=== PATIENT | female | born 1930 | race Caucasian/White ===

== ENCOUNTER 2016-10-10 09:17 | Inpatient (IN) | payer MEDICARE, BC ==
[2016-10-10] MEDS ORDERED: FUROSEMIDE 10 MG/ML 4 ML VIAL IV STA (09:31)
[2016-10-10] MEDS ORDERED: NITROGLYCERIN OINT 1 INCH/GM PACKET TOPICAL STA (09:31)
--- NOTE | 2016-10-10 09:37 | ED ---
General Adult HPI - General Stated complaint: Difficulty Breathing/Abd Pain Time Seen by Provider: 10/10/16 09:17 Source: RN notes reviewed - History of Present Illness Initial comments: This is an 86-year-old female who presents emergency Department with a past medical history significant for atrial fibrillation and congestive heart failure. Patient comes in the emergency department today stating that since Monday she has been more short of breath has also noticed increased edema in her legs. Patient denies any chest pain or palpitations. Patient denies any recent fever chills or cough. Patient denies any lightheadedness dizziness or near syncopal episode. Patient denies any numbness or weakness. Patient denies abdominal pain patient denies nausea vomiting diarrhea. Patient denies any dysuria hematuria urinary frequency. Patient denies any recent injury or trauma. - Related Data Home Medications Medication Instructions Recorded Confirmed Diltiazem Cd [Cardizem CD] 120 mg PO DAILY 04/26/14 10/10/16 Furosemide [Lasix] 40 mg PO BID 04/26/14 10/10/16 Gabapentin [Neurontin] 100 mg PO DAILY 04/26/14 10/10/16 glipiZIDE [Glucotrol] 5 mg PO AC-BID 04/26/14 10/10/16 Betamethasone Dipropionate 1 applic TOPICAL BID 10/10/16 10/10/16 [Diprolene AF 0.05% Cream] Hydrocodone/Acetaminophen [[place] 1 tab PO QID PRN 10/10/16 10/10/16 7.5-325] Melatonin 5 mg PO HS 10/10/16 10/10/16 Ranitidine HCl [Zantac] 150 mg PO BID 10/10/16 10/10/16 Simvastatin [Zocor] 40 mg PO HS 10/10/16 10/10/16 Warfarin [Coumadin] 2.5 mg PO SUTUTHSA 10/10/16 10/10/16 Allergies Allergy/AdvReac Type Severity Reaction Status Date / Time Penicillins Allergy Unknown Verified 10/10/16 10:26 Sulfa (Sulfonamide Allergy Unknown Verified 10/10/16 10:26 Antibiotics) Review of Systems ROS Statement: Those systems with pertinent positive or pertinent negative responses have been documented in the HPI. ROS Other: All systems not noted in ROS Statement are negative. Past Medical History Past Medical History: Atrial Fibrillation, Diabetes Mellitus, Hyperlipidemia, Hypertension History of Any Multi-Drug Resistant Organisms: None Reported Past Surgical History: Appendectomy, Cholecystectomy, Hysterectomy, Tubal Ligation Past Psychological History: No Psychological Hx Reported Smoking Status: Never smoker Past Alcohol Use History: None Reported Past Drug Use History: None Reported General Exam - General Exam Comments Initial Comments: GENERAL: Patient is well-developed and well-nourished. Patient is nontoxic and well- hydrated and is in mild distress. ENT: Neck is soft and supple. No significant lymphadenopathy is noted. Oropharynx is clear. Moist mucous membranes. Neck has full range of motion without eliciting any pain. EYES: The sclera were anicteric and conjunctiva were pink and moist. Extraocular movements were intact and pupils were equal round and reactive to light. Eyelids were unremarkable. PULMONARY: Unlabored respirations. Good breath sounds bilaterally. Crackles in the bases left greater than right CARDIOVASCULAR: There is a regular rate and rhythm without any murmurs gallops or rubs. ABDOMEN: Soft and nontender with normal bowel sounds. No palpable organomegaly was noted. There is no palpable pulsatile mass. SKIN: Skin is clear with no lesions or rashes and otherwise unremarkable. NEUROLOGIC: Patient is alert and oriented x3. Cranial nerves II through XII are grossly intact. Motor and sensory are also intact. Normal speech, volume and content. Symmetrical smile. MUSCULOSKELETAL: Normal extremities with adequate strength and full range of motion. 2+ edema LYMPHATICS: No significant lymphadenopathy is noted PSYCHIATRIC: Normal psychiatric evaluation. Normal interpersonal interactions appears functionally intact in deals appropriately with others. No signs of depression. No signs of anxiety. Course Vital Signs 10/10/16 10/10/16 10/10/16 09:30 09:51 09:53 Temperature 99.1 F Pulse Rate 66 63 Respiratory 24 24 24 Rate Blood Pressure 151/71 147/70 O2 Sat by Pulse 98 98 Oximetry 10/10/16 10:21 Temperature Pulse Rate 62 Respiratory 22 Rate Blood Pressure 133/68 O2 Sat by Pulse 94 L Oximetry Medical Decision Making - Medical Decision Making EKG shows accelerated junctional rhythm no P waves are noted QRSs 100 a QT interval 414 QTC is 440. Patient's EKG shows no ST segment elevation or depression Patient's chest x-ray shows pulmonary edema. Patient received Lasix and Nitropaste in the emergency department to try to recent. Patient also had an elevated troponin that will be repeated as an inpatient. I will continue the patient's Lasix on the floor as well. I spoke with Dr. Frye he agreed to admit the patient admitted the patient and consult cardiology. - Lab Data Result diagrams: 10/10/16 09:40 10/10/16 09:40 Lab Results 10/10/16 10/10/16 10/10/16 Range/Units 09:40 09:40 09:40 WBC 11.3 H (3.8-10.6) k/uL RBC 4.48 (3.80-5.40) m/uL Hgb 14.5 (11.4-16.0) gm/dL Hct 44.8 (34.0-46.0) % MCV 100.0 (80.0-100.0) fL MCH 32.3 (25.0-35.0) pg MCHC 32.3 (31.0-37.0) g/dL RDW 15.0 (11.5-15.5) % Plt Count 181 (150-450) k/uL Neutrophils % 73 % Lymphocytes % 15 % Monocytes % 7 % Eosinophils % 1 % Basophils % 1 % Neutrophils # 8.3 H (1.3-7.7) k/uL Lymphocytes # 1.7 (1.0-4.8) k/uL Monocytes # 0.8 (0-1.0) k/uL Eosinophils # 0.2 (0-0.7) k/uL Basophils # 0.1 (0-0.2) k/uL Hypochromasia Slight Macrocytosis Slight PT (9.0-12.0) sec INR (<1.1) APTT (22.0-30.0) sec Sodium 138 (137-145) mmol/L Potassium 4.8 (3.5-5.1) mmol/L Chloride 103 (98-107) mmol/L Carbon Dioxide 21 L (22-30) mmol/L Anion Gap 14 mmol/L BUN 38 H (7-17) mg/dL Creatinine 1.29 H (0.52-1.04) mg/dL Est GFR (MDRD) Af Amer 48 (>60 ml/min/1.73 sqM) Est GFR (MDRD) Non-Af 39 (>60 ml/min/1.73 sqM) Glucose 260 H (74-99) mg/dL Calcium 9.3 (8.4-10.2) mg/dL Magnesium 2.1 (1.6-2.3) mg/dL Total Bilirubin 0.9 (0.2-1.3) mg/dL AST 39 H (14-36) U/L ALT 25 (9-52) U/L Alkaline Phosphatase 76 (38-126) U/L Total Creatine Kinase 68 (30-135) U/L CK-MB (CK-2) 2.7 H* (0.0-2.4) ng/mL CK-MB (CK-2) Rel Index 4.0 Troponin I 0.122 H* (0.000-0.034) ng/mL NT-Pro-B Natriuret Pep pg/mL Total Protein 7.3 (6.3-8.2) g/dL Albumin 4.0 (3.5-5.0) g/dL 10/10/16 10/10/16 Range/Units 09:40 09:40 WBC (3.8-10.6) k/uL RBC (3.80-5.40) m/uL Hgb (11.4-16.0) gm/dL Hct (34.0-46.0) % MCV (80.0-100.0) fL MCH (25.0-35.0) pg MCHC (31.0-37.0) g/dL RDW (11.5-15.5) % Plt Count (150-450) k/uL Neutrophils % % Lymphocytes % % Monocytes % % Eosinophils % % Basophils % % Neutrophils # (1.3-7.7) k/uL Lymphocytes # (1.0-4.8) k/uL Monocytes # (0-1.0) k/uL Eosinophils # (0-0.7) k/uL Basophils # (0-0.2) k/uL Hypochromasia Macrocytosis PT 23.3 H (9.0-12.0) sec INR 2.4 (<1.1) APTT 29.4 (22.0-30.0) sec Sodium (137-145) mmol/L Potassium (3.5-5.1) mmol/L Chloride (98-107) mmol/L Carbon Dioxide (22-30) mmol/L Anion Gap mmol/L BUN (7-17) mg/dL Creatinine (0.52-1.04) mg/dL Est GFR (MDRD) Af Amer (>60 ml/min/1.73 sqM) Est GFR (MDRD) Non-Af (>60 ml/min/1.73 sqM) Glucose (74-99) mg/dL Calcium (8.4-10.2) mg/dL Magnesium (1.6-2.3) mg/dL Total Bilirubin (0.2-1.3) mg/dL AST (14-36) U/L ALT (9-52) U/L Alkaline Phosphatase (38-126) U/L Total Creatine Kinase (30-135) U/L CK-MB (CK-2) (0.0-2.4) ng/mL CK-MB (CK-2) Rel Index Troponin I (0.000-0.034) ng/mL NT-Pro-B Natriuret Pep 2710 pg/mL Total Protein (6.3-8.2) g/dL Albumin (3.5-5.0) g/dL Critical Care Time Critical Care Time: Yes Total Critical Care Time: 35 Disposition Clinical Impression: Acute pulmonary edema Disposition: ADMITTED IP TO THIS [facility] Time of Disposition: 11:02
[2016-10-10] MEDS ORDERED: methylPREDNISolone SOD SUCCI 125 MG/2 ML VIAL IV STA (09:58)
[2016-10-10] MEDS ORDERED: IPRATROPIUM 0.5 MG/2.5 ML NEBU INHALATION STA (09:58)
[2016-10-10] MEDS ORDERED: ALBUTEROL NEBULIZED 2.5 MG/3 ML INHALATION STA (09:58)
[2016-10-10 09:59] LABS: Basophils # (A) 0.1 k/uL (0-0.2); Basophils % (A) 1 %; CH 31.7; CHCM 31.9; Eosinophils # (A) 0.2 k/uL (0-0.7); Eosinophils % (A) 1 %; HCT 44.8 % (34.0-46.0); HDW 3.22; HGB 14.5 gm/dL (11.4-16.0); Hypochromasia Slight; Luc # (Auto) 0.32; Luc % (Auto) 3; Lymphocytes # (A) 1.7 k/uL (1.0-4.8); Lymphocytes % (A) 15 %; MCH 32.3 pg (25.0-35.0); MCHC 32.3 g/dL (31.0-37.0); Macrocytosis Slight; Mean Platelet Volume 8.6; Monocytes # (A) 0.8 k/uL (0-1.0); Monocytes % (A) 7 %; Neutrophils # (A) 8.3 k/uL (1.3-7.7); Neutrophils % (A) 73 %; RBC 4.48 m/uL (3.80-5.40); WBC 11.3 k/uL (3.8-10.6); WBC (Perox) 11.16
--- NOTE | 2016-10-10 10:10 | XR ---
EXAMINATION TYPE: XR chest 2V DATE OF EXAM: 10/10/2016 10:04 AM COMPARISON: Chest x-ray October 11, 2013. HISTORY: History of hypertension presents with chest pain. TECHNIQUE: Frontal and lateral views of the chest are obtained. FINDINGS: Osseous structures are demineralized. Moderate compression type fracture deformity at rough ly T8 level is felt present presumed chronic. There is cardiomegaly without reflect thoracic aorta. T here is background of chronic emphysematous change and interstitial fibrosis. There is increasing int erstitial prominence felt to reflect component of acute edema on background of chronic fibrosis. No l arge pleural effusion or pneumothorax is seen bilaterally. IMPRESSION: Suspect CHF exacerbation as there is cardiomegaly with new interstitial prominence/suspe cted mild to moderate interstitial edema. There is background of chronic emphysematous change and celeste ateral diffuse interstitial fibrosis noted.
[2016-10-10 10:39] LABS: INR 2.4 (<1.1); Partial Thromboplastin Time 29.4 sec (22.0-30.0); Prothrombin Time 23.3 sec (9.0-12.0)
[2016-10-10 10:44] LABS: Creatine Kinase MB 2.7 ng/mL (0.0-2.4); Troponin I 0.122 ng/mL (0.000-0.034)
[2016-10-10 10:49] LABS: Calcium 9.3 mg/dL (8.4-10.2); Magnesium 2.1 mg/dL (1.6-2.3); Potassium 4.8 mmol/L (3.5-5.1); Total Bilirubin 0.9 mg/dL (0.2-1.3); Total Protein 7.3 g/dL (6.3-8.2)
[2016-10-10] MEDS ORDERED: FUROSEMIDE 10 MG/ML 4 ML VIAL IV SCH (11:15)
--- NOTE | 2016-10-10 15:53 | P.CRDCN ---
History of Present Illness Consult date: 10/10/16 Requesting physician: Ileana Frye Consult reason: congestive heart failure Chief complaint: Shortness of breath and leg swelling History of present illness: This is a pleasant 86-year-old female with past medical history significant for chronic persistent atrial fibrillation, congestive cardiac failure,, hypertension, hyperlipidemia. Who is regularly with Dr. Joe in the office. Shouldn't did have a heart catheterization performed in 2011 which revealed a 50% lesion in the mid LAD, aortic peak gradient of 40. Patient presented to the hospital with symptoms of progressively worsening shortness of breath and associated peripheral edema. Asked x-ray on admission revealed congestive heart failure exacerbation. KG showed atrial fibrillation with a controlled ventricular response. White blood cell count on admission 11.3, hemoglobin 14.5, platelet count 181. INR 2.4, potassium 4.8, BUN 38, creatinine 1.2. Calcium level IX.3, mag level 2.1.1, troponin 0.1-2, BNP level 2710. Was initiated on IV Lasix in the emergency room, diuresing well. Past Medical History Past Medical History: Atrial Fibrillation, Coronary Artery Disease (CAD), Heart Failure, COPD, Diabetes Mellitus, Eye Disorder, GERD/Reflux, Hyperlipidemia, Hypertension, Osteoarthritis (OA) Additional Past Medical History / Comment(s): NIDDM type II, murmur, hiatal hernia, bilateral glaucoma, arthritis multiple joints, urinary leakage-uses pads. History of Any Multi-Drug Resistant Organisms: None Reported Past Surgical History: Appendectomy, Cholecystectomy, Heart Catheterization, Hysterectomy, Joint Replacement, Orthopedic Surgery, Tonsillectomy, Tubal Ligation Additional Past Surgical History / Comment(s): 2006 cardiac cath-tx medically, colonoscopy/EGD, total L knee arthroplasty, R shoulder rotator cuff repair, bunions bilateral feet, bilateral cataract removal and trabeculectomy. Past Anesthesia/Blood Transfusion Reactions: No Reported Reaction Past Psychological History: Anxiety Additional Psychological History / Comment(s): Pt resides alone in an apartment. She uses a walker to ambulate. She no longer drives. Her son takes her wherever she needs to go. She manages her own medications and performs her own ADLS. She does have meals on wheels. She is a . She served during [employer] in the [employer] and was in several countries. Smoking Status: Former smoker Past Alcohol Use History: None Reported Additional Past Alcohol Use History / Comment(s): Pt startes smoking in 1959 and quit in 1981. Past Drug Use History: None Reported - Past Family History Father Additional Family Medical History / Comment(s): Father had "heart problems" and at 82 yrs. Mother Additional Family Medical History / Comment(s): Mother of a "bad heart" at the age of 70yrs. Medications and Allergies Home Medications Medication Instructions Recorded Confirmed Type Diltiazem Cd [Cardizem CD] 120 mg PO DAILY 04/26/14 10/10/16 History Furosemide [Lasix] 40 mg PO BID 04/26/14 10/10/16 History Gabapentin [Neurontin] 100 mg PO DAILY 04/26/14 10/10/16 History glipiZIDE [Glucotrol] 5 mg PO AC-BID 04/26/14 10/10/16 History Betamethasone Dipropionate 1 applic TOPICAL BID 10/10/16 10/10/16 History [Diprolene AF 0.05% Cream] Hydrocodone/Acetaminophen [[place] 1 tab PO QID PRN 10/10/16 10/10/16 History 7.5-325] Melatonin 5 mg PO HS 10/10/16 10/10/16 History Ranitidine HCl [Zantac] 150 mg PO BID 10/10/16 10/10/16 History Simvastatin [Zocor] 40 mg PO HS 10/10/16 10/10/16 History Warfarin [Coumadin] 2.5 mg PO SUTUTHSA 10/10/16 10/10/16 History Allergies Allergy/AdvReac Type Severity Reaction Status Date / Time Penicillins Allergy Unknown Verified 10/10/16 10:26 Sulfa (Sulfonamide Allergy Unknown Verified 10/10/16 10:26 Antibiotics) Physical Exam Vitals: Vital Signs Temp Pulse Pulse Resp BP BP Pulse Ox 10/10/16 13:48 97.9 F 69 18 130/66 98 10/10/16 13:29 98.1 F 66 18 137/70 99 10/10/16 11:51 72 20 135/74 95 10/10/16 11:19 58 L 20 127/77 94 L Intake and Output 10/10/16 10/10/16 10/10/16 06:59 14:59 22:59 Output Total 300 Balance -300 Output: Urine 300 PHYSICAL EXAMINATION: HEENT: Head is atraumatic, normocephalic. Pupils equal, round. Neck is supple. There is no elevated jugular venous pressure. HEART EXAMINATION: S1 and S2 systolic ejection murmur is heard. CHEST EXAMINATION: Reveal fine rales and diminished air entry to bilateral bases ABDOMEN: Soft, nontender. Bowel sounds are heard. No organomegaly noted. EXTREMITIES: 2+ peripheral pulses with 2+ evidence of peripheral edema and no calf tenderness noted. NEUROLOGIC patient is awake, alert and oriented -3. . Results 10/10/16 09:40 10/10/16 09:40 Current Medications Generic Name Dose Route Start Last Admin Trade Name Freq PRN Reason Stop Dose Admin Hydrocodone Bitart/Acetaminophen 1 each 10/10/16 15:30 [place] 7.5-325 PO QID PRN Pain Furosemide 40 mg 10/10/16 16:00 Lasix IV Q8H ROBI Melatonin 5 mg 10/10/16 21:00 Melatonin PO HS [facility] Nitroglycerin 1 inch 10/10/16 13:00 Nitro-Bid Oint TOPICAL QID ROBI Non-Formulary Medication 150 mg 10/10/16 21:00 Ranitidine Hcl [Zantac] PO BID ROBI Non-Formulary Medication 40 mg 10/10/16 21:00 Simvastatin [Zocor] PO HS ROBI Warfarin Sodium 2.5 mg 10/11/16 15:30 Coumadin PO SUTUTHSA [facility] Intake and Output 10/10/16 10/10/16 10/10/16 06:59 14:59 22:59 Output Total 300 Balance -300 Output: Urine 300 EKG Interpretations (text) EKG shows atrial fibrillation with a controlled ventricular response. Assessment and Plan Plan: Assessment and plan #1 congestive cardiac failure, likely diastolic in nature, acute on chronic. #2 aortic stenosis #3 hypertension #4 diabetes #5 chronic persistent atrial fibrillation, on Coumadin., INR 2.4. #6 hyperlipidemia Plan Obtain an echocardiogram with Doppler study to assess the patient's LV function. We also recommend to continue IV Lasix. Discontinue Cardizem and start low-dose beta dru. Further recommendations to follow. DNP note has been reviewed, I agree with a documented findings and plan of care. Patient was seen and examined.
[2016-10-10] MEDS: FUROSEMIDE 10 MG/ML 4 ML VIAL IV SCH (16:24)
[2016-10-10] MEDS: WARFARIN 1.25 MG TAB PO SCH (16:24)
[2016-10-10] MEDS: NITROGLYCERIN OINT 1 INCH/GM PACKET TOPICAL SCH ×3 (16:24→21:16)
--- NOTE | 2016-10-10 19:02 | HP ---
DATE OF ADMISSION: 10/10/2016 REASON FOR ADMISSION: Difficulty in breathing. HISTORY OF PRESENT ILLNESS: This is an 86-year-old female with history of chronic ( ) atrial fibrillation who sees Dr. Astudillo in the office, maintained on a calcium channel dru for rate control and Eliquis for anticoagulation. She comes into the hospital with progressive worsening of lower extremity edema associated with progressive worsening of pain over the last 7 days. The patient thereafter noted to have dyspnea over the last 2 days; hence came into the hospital for ongoing care. Initially the chest x-ray that was done revealed pulmonary vascular congestion consistent with the physical exam findings. Patient was given one dose of Lasix in the emergency room. The patient was noted to have elevated BNP and also had troponin elevation. Patient appears to be in atrial fibrillation at this time as well. Past medical history includes: 1. Atrial fibrillation. 2. CAD. 3. Apparently a remote history of CHF with unknown ejection fraction. 4. COPD. 5. Diabetes mellitus. 6. Dyslipidemia. 7. Hypertension. 8. Osteoarthritis. Surgeries include: 1. Cardiac catheterization. 2. Cholecystectomy. 3. Hysterectomy. 4. Joint replacement. 5. Orthopedic surgery. 6. Tonsillectomy. 7. Tubal ligation. 8. Appendectomy. ALLERGIES: PENICILLIN and SULFA. Medications include: 1. Cardizem CD 120. 2. Lasix 40 mg p.o. b.i.d. 3. Neurontin 100 mg p.o. daily. 4. Glipizide 5 mg p.o. b.i.d. 5. Betamethasone cream topically b.i.d. 6. [place] 7.5/325 q.i.d. p.r.n. 7. Melatonin 5 mg p.o. at bedtime. 8. Zantac 150 mg p.o. b.i.d. 9. Simvastatin 40 mg p.o. at bedtime. 10. Coumadin 2.5 mg p.o. FAMILY HISTORY: Not pertinent to current admission. SOCIAL HISTORY: Former smoker. Denies significant alcohol use or any illicit drug use. PHYSICAL EXAM: VITALS: Temperature 97.9, heart rate 69, respiratory rate 18, blood pressure 137/70. Saturating at 98% on 3 L of supplemental oxygen. GENERAL: Appears alert, oriented x3, in no distress. HEENT: Head is atraumatic, normocephalic. Pupils equal, round and reactive to light and accommodation. HEART: A systolic murmur is appreciated. Irregularly irregular. LUNGS: Crackles appreciated at the bases. No wheezing appreciated. ABDOMEN: Soft, nontender. No organomegaly. LOWER EXTREMITIES: Two plus pitting edema noted. No significant erythema. Tender to palpation. NEURO: No focal motor or sensory deficits appreciated. LABORATORY DATA: Hemoglobin 14.5, hematocrit 44.8. White count 11.3, platelets of 181. Sodium 138, potassium 4.8, chloride 102, bicarb 21. BUN 38, creatinine 1.29. ASSESSMENT AND PLAN: 1. Acute hypoxic respiratory failure, likely secondary to an acute exacerbation of congestive heart failure; apparently was noted to have diastolic dysfunction. 2. Aortic stenosis; clinically appears to have progressed; likely contributing to #1 as well. 3. Hypertension. 4. Dyslipidemia. 5. Chronic obstructive pulmonary disease. 6. Chronic persistent atrial fibrillation, currently on Coumadin. 7. Coumadin coagulopathy. 8. Diabetes mellitus. 9. Chronic kidney disease, stage III. PLAN: Continue Lasix 40 mg IV q.8 hours. Strict I&O. Trend troponin. Cardiology consultation will be obtained. Medications were reconciled. Cardizem will be held at this time, as there is a concern over patient's LV function. Once patient's exacerbation is stabilized, beta dru could be initiated. Repeat coags in the a.m. Will follow.
[2016-10-10 20:42] LABS: Glucose,Whole Blood 289 mg/dL (75-99)
[2016-10-10] MEDS: FAMOTIDINE 20 MG TAB PO SCH (21:16)
[2016-10-10] MEDS: MELATONIN 5 MG TABLET PO SCH (21:16)
[2016-10-10] MEDS: ATORVASTATIN 20 MG TAB PO SCH (21:16)
[2016-10-10] MEDS: METOPROLOL TARTRATE 25 MG TAB PO SCH (21:16)
[2016-10-10] MEDS: INSULIN LISPRO (humaLOG) 300 UNIT/3 ML VIAL SQ SCH (21:18)
[2016-10-10] MEDS: HYDROcodone/APAP 7.5-325MG 1 EACH TAB PO PRN (21:23)
[2016-10-11] MEDS: FUROSEMIDE 10 MG/ML 4 ML VIAL IV SCH ×3 (00:27→16:48)
[2016-10-11 05:48] LABS: Glucose,Whole Blood 189 mg/dL (75-99)
[2016-10-11] MEDS: INSULIN LISPRO (humaLOG) 300 UNIT/3 ML VIAL SQ SCH ×4 (06:14→21:10)
[2016-10-11] MEDS: NITROGLYCERIN OINT 1 INCH/GM PACKET TOPICAL SCH (08:48)
[2016-10-11] MEDS: GABAPENTIN 100 MG CAP PO SCH (08:48)
[2016-10-11] MEDS: METOPROLOL TARTRATE 25 MG TAB PO SCH ×2 (08:48→21:10)
[2016-10-11] MEDS: FAMOTIDINE 20 MG TAB PO SCH (08:48)
[2016-10-11 09:51] LABS: INR 2.3 (<1.1); Prothrombin Time 22.5 sec (9.0-12.0)
[2016-10-11 10:12] LABS: Calcium 8.8 mg/dL (8.4-10.2); Potassium 4.4 mmol/L (3.5-5.1)
[2016-10-11 10:59] LABS: Hemoglobin A1C 8.6 % (4.2-6.1)
[2016-10-11 12:00] LABS: Glucose,Whole Blood 310 mg/dL (75-99)
--- NOTE | 2016-10-11 13:11 | ECHOF ---
Referral Reason:chf MEASUREMENTS -------- HEIGHT: 170.2 cm WEIGHT: 79.4 kg BP: 119/64 IVSd: 2.0 cm (0.6 - 1.1) LVIDd: 4.0 cm (3.9 - 5.3) LVPWd: 2.1 cm (0.6 - 1.1) IVSs: 2.4 cm LVIDs: 2.4 cm LVPWs: 2.3 cm Ao Diam: 3.2 cm (2.0 - 3.7) AV Cusp: 0.5 cm (1.5 - 2.6) LA Diam: 5.1 cm (2.7 - 3.8) MV EXCURSION: 16.312 mm (> 18.000) MV EF SLOPE: 51 mm/s (70 - 150) EPSS: 0.9 cm MV E [place]: 0.89 m/s MV DecT: 229 ms MV A [place]: 0.26 m/s MV E/A Ratio: 3.40 AV maxP.29 mmHg AV meanP.03 mmHg RAP: 5.00 mmHg RVSP: 34.27 mmHg FINDINGS -------- Sinus rhythm. This was a technically adequate study. There is severe concentric left ventricular hypertrophy. Overall left ventricular systolic function is low-normal with, an EF between 50 - 55 %. The right ventricle is normal in size and function. The left atrium is moderately dilated. The right atrium is normal in size. Aortic valve is trileaflet and is severely thickened. There is severe aortic stenosis present. Peak/mean gradient across the Aortic Valve is 68.29mmHg / 44.03mmHg. The mitral valve leaflets are mildly thickened. Mild mitral annular calcification present. Mild mitral regurgitation is present. Mild tricuspid regurgitation present. The right ventricular systolic pressure, as measured by Doppler, is 34.27mmHg. Pulmonic valve appears structurally normal. The aortic root size is normal. The pericardium is normal. CONCLUSIONS -------- 1. Sinus rhythm. 2. Peak/mean gradient across the Aortic Valve is 68.29mmHg / 44.03mmHg. 3. The mitral valve leaflets are mildly thickened. 4. Mild mitral annular calcification present. 5. Mild mitral regurgitation is present. 6. Mild tricuspid regurgitation present. 7. The right ventricular systolic pressure, as measured by Doppler, is 34.27mmHg. 8. Pulmonic valve appears structurally normal. 9. The aortic root size is normal. 10. The pericardium is normal. 11. This was a technically adequate study. 12. There is severe concentric left ventricular hypertrophy. 13. Overall left ventricular systolic function is low-normal with, an EF between 50 - 55 %. 14. The right ventricle is normal in size and function. 15. The left atrium is moderately dilated. 16. The right atrium is normal in size. 17. Aortic valve is trileaflet and is severely thickened. 18. There is severe aortic stenosis present. BIOMEDICAL INSTRUMENT TECHNICIAN: Apolonia Su RDCS
[2016-10-11 14:27] VITALS: BMI 27.5
--- NOTE | 2016-10-11 14:58 | P.PN ---
Subjective This is a pleasant 86-year-old female with past medical history significant for chronic persistent atrial fibrillation, congestive cardiac failure,, hypertension, hyperlipidemia. Who is regularly with Dr. Astudillo in the office. Patient did have a heart catheterization performed in 2011 which revealed a 50% lesion in the mid LAD, aortic peak gradient of 40. Patient presented to the hospital with symptoms of progressively worsening shortness of breath and associated peripheral edema. Chest x-ray on admission revealed congestive heart failure exacerbation. The patient was initiated on IV Lasix yesterday, her weight is down 2 kg today. Creatinine 1.6, BUN 47, sodium 136, INR 2.3. Echocardiogram with Doppler study was performed which revealed an ejection fraction of 50-55%. Objective - Vital Signs Vital signs: Vital Signs Temp 96.9 F L 10/11/16 12:00 Pulse 41 L 10/11/16 12:00 Resp 20 10/11/16 12:00 BP 109/73 10/11/16 12:00 Pulse Ox 98 10/11/16 12:00 Intake & Output 10/10/16 10/11/16 10/11/16 18:59 06:59 18:59 Intake Total 100 Output Total 300 800 Balance -300 -700 Weight 69 kg 79.8 kg 79.8 kg Intake: Oral 100 Output: Urine 300 800 Other: Voiding Method Bedside Commode # Voids 1 - Exam PHYSICAL EXAMINATION: HEENT: Head is atraumatic, normocephalic. Pupils equal, round. Neck is supple. There is no elevated jugular venous pressure. HEART EXAMINATION: S1 and S2 systolic ejection murmur is heard. CHEST EXAMINATION: Lungs reveal fine rales and diminished air entry to bilateral bases ABDOMEN: Soft, nontender. Bowel sounds are heard. No organomegaly noted. EXTREMITIES: 2+ peripheral pulses with 2+ evidence of peripheral edema and no calf tenderness noted. NEUROLOGIC patient is awake, alert and oriented -3. - Labs CBC & Chem 7: 10/10/16 09:40 10/11/16 09:26 Labs: Abnormal Lab Results - Last 24 Hours (Table) 10/10/16 10/11/16 10/11/16 Range/Units 20:40 05:47 09:26 PT (9.0-12.0) sec Sodium (137-145) mmol/L Chloride (98-107) mmol/L BUN (7-17) mg/dL Creatinine (0.52-1.04) mg/dL Glucose (74-99) mg/dL POC Glucose (mg/dL) 289 H 189 H (75-99) mg/dL Hemoglobin A1c 8.6 H (4.2-6.1) % 10/11/16 10/11/16 10/11/16 Range/Units 09:26 09:26 11:47 PT 22.5 H (9.0-12.0) sec Sodium 136 L (137-145) mmol/L Chloride 94 L (98-107) mmol/L BUN 47 H (7-17) mg/dL Creatinine 1.68 H (0.52-1.04) mg/dL Glucose 356 H (74-99) mg/dL POC Glucose (mg/dL) 310 H (75-99) mg/dL Hemoglobin A1c (4.2-6.1) % Assessment and Plan Plan: Assessment and plan #1 congestive cardiac failure, likely diastolic in nature, acute on chronic. #2 aortic stenosis #3 hypertension #4 diabetes #5 chronic persistent atrial fibrillation, on Coumadin., INR 2.3. #6 hyperlipidemia Plan Continue current dose of IV Lasix, check lytes BUN and creatinine in the morning. DNP note has been reviewed, I agree with a documented findings and plan of care. Patient was seen and examined.
[2016-10-11] MEDS: WARFARIN 2.5 MG TAB PO SCH (16:48)
[2016-10-11 16:51] LABS: Glucose,Whole Blood 280 mg/dL (75-99)
[2016-10-11 20:44] LABS: Glucose,Whole Blood 262 mg/dL (75-99)
[2016-10-11] MEDS: MELATONIN 5 MG TABLET PO SCH (21:09)
[2016-10-11] MEDS: ATORVASTATIN 20 MG TAB PO SCH (21:09)
--- NOTE | 2016-10-11 22:55 | PN ---
SUBJECTIVE DATA/INTERVAL HISTORY: This is an 86-year-old female with history of aortic stenosis, comes into the hospital with progressive worsening of dyspnea and lower extremity edema. Patient was started on IV Lasix 40 mg q.8 hours. Today patient states that she is significantly improved. Her breathing is improved. Denies having any orthopnea or PND. States that her tenderness in her lower extremities is improved as well. Denies having fevers, chills, nausea, vomiting, or diarrhea. PHYSICAL EXAMINATION: VITALS: Temperature 97.6, heart rate is a 52, respiratory rate 20, blood pressure is 109/53, saturating 95% on 3 liters of supplemental oxygen. GENERAL APPEARANCE: Alert, oriented, she does not appear to be in distress, currently on 3 liters of supplemental oxygen. Neck is supple. No JVD. Heart a systolic murmur predominantly appreciated at the aortic area. It is a 3 out of 6 in intensity, No significant radiation to the carotids. LUNGS: Air movement is appreciated. Crackles at the bases. No wheezing or rhonchi appreciated. ABDOMEN: Soft, nontender, no organomegaly. LOWER EXTREMITIES: 2+ pitting edema appreciated. However, significantly improved in admission. NEURO: No focal motor or sensory deficits noted. Laboratory data include sodium 136, potassium 4.4, chloride 94, bicarb 29, BUN 47, creatinine of 1.68. INR is 2.3. ASSESSMENT AND PLAN: 1. Acute exacerbation of HFPEF secondary to aortic stenosis valve gradient about 69 mmHg. 2. Acute hypoxic respiratory failure secondary to above. 3. Hypertension. 4. Dyslipidemia. 5. Chronic persistent atrial fibrillation currently maintained on Coumadin. 6. Diabetes mellitus. 7. Chronic kidney disease, Stage III with an acute component, creatinine 1.6, from a baseline of 1.12. PLAN: Continue IV diuresis. Maintain strict Is&Os. Repeat renal function in the a.m. Worsening of creatinine is likely secondary to heart failure. Continue diuretic therapy at this time. There is bradycardia that is appreciated, however, patient is asymptomatic. Continue monitoring. Repeat PT-INR and thereafter Coumadin dosing will be appropriately done. Patient is improved at this time.
[2016-10-12] MEDS: FUROSEMIDE 10 MG/ML 4 ML VIAL IV SCH ×3 (00:33→22:20)
[2016-10-12 05:46] LABS: Glucose,Whole Blood 141 mg/dL (75-99)
[2016-10-12] MEDS: INSULIN LISPRO (humaLOG) 300 UNIT/3 ML VIAL SQ SCH ×4 (06:07→22:21)
[2016-10-12 07:06] LABS: INR 2.2 (<1.1); Prothrombin Time 20.8 sec (9.0-12.0)
[2016-10-12 07:14] LABS: Calcium 9.1 mg/dL (8.4-10.2); Magnesium 2.1 mg/dL (1.6-2.3); Potassium 4.1 mmol/L (3.5-5.1)
[2016-10-12] MEDS: FAMOTIDINE 20 MG TAB PO SCH (08:32)
[2016-10-12] MEDS: GABAPENTIN 100 MG CAP PO SCH (08:32)
[2016-10-12] MEDS: METOPROLOL TARTRATE 25 MG TAB PO SCH ×2 (08:32→22:20)
--- NOTE | 2016-10-12 10:56 | P.PN ---
Subjective Principal diagnosis: CHF This is a pleasant 86-year-old female patient who sees Dr. Astudillo as an outpatient with a known chronic A. fib, aortic stenosis, and congestive heart failure, presented to the hospital with progressive dyspnea and was diagnosed with congestive heart failure exacerbation. The patient underwent an echocardiogram which showed normal old dysfunction with evidence of severe aortic stenosis with a mean gradient of more than 40 mmHg. I'll follow-up with her today, she seems to be feeling better. The shortness of breath is better. On physical examination she still have some crackles. We'll continue the current medical treatment was decreasing the dose of Lasix to 40 mg IV twice a day. Possible discharge in the next 24 hours. The patient need to be assessed as an outpatient for percutaneous aortic valve replacement. Objective - Vital Signs Vital signs: Vital Signs Temp 97.1 F L 10/12/16 08:00 Pulse 61 10/12/16 08:00 Resp 20 10/12/16 08:00 BP 98/52 10/12/16 08:00 Pulse Ox 90 L 10/12/16 08:00 Intake & Output 10/11/16 10/12/16 10/12/16 18:59 06:59 18:59 Intake Total 360 400 Output Total 960 1600 Balance -600 -1600 400 Weight 79.8 kg 82.5 kg Intake: Oral 360 400 Output: Urine 960 1600 Other: Voiding Method Bedside Commode # Voids 2 2 # Bowel Movements 1 - Constitutional General appearance: Present: no acute distress - Respiratory Respiratory: bilateral: rales - Cardiovascular Rhythm: regular Heart sounds: normal: S1 - Labs CBC & Chem 7: 10/10/16 09:40 10/12/16 05:39 Labs: Abnormal Lab Results - Last 24 Hours (Table) 10/11/16 10/11/16 10/11/16 Range/Units 09:26 11:47 16:45 PT (9.0-12.0) sec Chloride (98-107) mmol/L Carbon Dioxide (22-30) mmol/L BUN (7-17) mg/dL Creatinine (0.52-1.04) mg/dL Glucose (74-99) mg/dL POC Glucose (mg/dL) 310 H 280 H (75-99) mg/dL Hemoglobin A1c 8.6 H (4.2-6.1) % 10/11/16 10/12/16 10/12/16 Range/Units 20:41 05:39 05:39 PT 20.8 H (9.0-12.0) sec Chloride 92 L (98-107) mmol/L Carbon Dioxide 40 H* (22-30) mmol/L BUN 48 H (7-17) mg/dL Creatinine 1.57 H (0.52-1.04) mg/dL Glucose 137 H (74-99) mg/dL POC Glucose (mg/dL) 262 H (75-99) mg/dL Hemoglobin A1c (4.2-6.1) % 10/12/16 Range/Units 05:44 PT (9.0-12.0) sec Chloride (98-107) mmol/L Carbon Dioxide (22-30) mmol/L BUN (7-17) mg/dL Creatinine (0.52-1.04) mg/dL Glucose (74-99) mg/dL POC Glucose (mg/dL) 141 H (75-99) mg/dL Hemoglobin A1c (4.2-6.1) % Assessment and Plan Plan: Assessment #1 congestive heart failure exacerbation secondary to severe aortic stenosis #2 severity aortic stenosis #3 chronic A. fib #4 multiple comorbid conditions you Plan #1 decrease the dose of Lasix IV #2 continue the current medical treatment #3 follow-up with the patient
[2016-10-12 11:38] LABS: Glucose,Whole Blood 239 mg/dL (75-99)
[2016-10-12 16:42] LABS: Glucose,Whole Blood 322 mg/dL (75-99)
[2016-10-12] MEDS: WARFARIN 1.25 MG TAB PO SCH (17:06)
[2016-10-12 21:10] LABS: Glucose,Whole Blood 140 mg/dL (75-99)
[2016-10-12] MEDS: ATORVASTATIN 20 MG TAB PO SCH (22:20)
[2016-10-12] MEDS: MELATONIN 5 MG TABLET PO SCH (22:20)
[2016-10-12] MEDS: HYDROcodone/APAP 7.5-325MG 1 EACH TAB PO PRN (22:21)
--- NOTE | 2016-10-12 23:14 | PN ---
SUBJECTIVE DATA AND HOSPITAL COURSE: This is an 86-year-old female who came into the hospital with difficulty in breathing and progressive worsening of lower extremity edema. Patient was noted to be in acute congestive heart failure secondary to severe aortic stenosis. Patient was started on diuretics and has improved significantly over the course of the last 48 hours. Over the last 24 hours patient's urine output was greater than 2 L. During my evaluation, the patient states she is doing well. She was lying flat on 2 L supplemental oxygen. Denies having any headaches, blurry vision, nausea, vomiting, diarrhea or urinary urgency or frequency. Patient states her tenderness in her lower extremities has completely resolved. OBJECTIVE DATA: VITALS: Temperature 96.7, heart rate 60, respiratory rate 20, blood pressure 110/53. Saturating at 95% on 2 L supplemental oxygen. GENERAL APPEARANCE: Alert, oriented x3. No distress. NECK: Supple. No JVD. HEART: S1, S2 heard. A loud systolic murmur predominantly appreciated at the aortic region. No significant radiation to the carotids. LUNGS: Crackles appreciated at the bases; however, improved from prior examination. ABDOMEN: Soft, nontender. No organomegaly. LOWER EXTREMITIES: One plus edema; however, significant improvement from prior evaluation. NEURO: No focal motor or sensory deficits noted. Laboratory data include INR 2.2; sodium 138, potassium 4.1, chloride 92, bicarb 40; BUN 48, creatinine of 1.57. ASSESSMENT AND PLAN: 1. Acute exacerbation of congestive heart failure, diastolic in nature, due to severe . 2. Acute hypoxic respiratory failure secondary to above. 3. Severe aortic stenosis. 4. Dyslipidemia. 5. Chronic persistent atrial fibrillation. 6. Diabetes mellitus. 7. Chronic kidney disease, stage III. Creatinine stable at 1.5. 8. Hypertension. PLAN: Continue diuresis. Decrease Lasix to 40 mg IV b.i.d. Patient with transvalve gradient will likely be a candidate for TVAR after coronaries are evaluated. Heart rate is stable. Repeat laboratory data in the a.m. Metabolic alkalosis secondary to contraction from diuresis. Will continue monitoring. There are no studies that show improvement with Diamox; hence will continue with Lasix therapy.
[2016-10-13 06:04] LABS: Glucose,Whole Blood 172 mg/dL (75-99)
[2016-10-13] MEDS: INSULIN LISPRO (humaLOG) 300 UNIT/3 ML VIAL SQ SCH ×4 (06:37→22:00)
[2016-10-13 07:02] LABS: INR 2.1 (<1.1); Prothrombin Time 20.2 sec (9.0-12.0)
[2016-10-13 07:20] LABS: Potassium 3.7 mmol/L (3.5-5.1); Total Protein 6.5 g/dL (6.3-8.2)
[2016-10-13] MEDS: GABAPENTIN 100 MG CAP PO SCH (08:10)
[2016-10-13] MEDS: FUROSEMIDE 10 MG/ML 4 ML VIAL IV SCH ×2 (08:10→22:00)
[2016-10-13] MEDS: METOPROLOL TARTRATE 25 MG TAB PO SCH ×2 (08:10→22:00)
[2016-10-13] MEDS: FAMOTIDINE 20 MG TAB PO SCH (08:10)
[2016-10-13] MEDS: HYDROcodone/APAP 7.5-325MG 1 EACH TAB PO PRN ×2 (08:28→22:24)
[2016-10-13 11:35] LABS: Glucose,Whole Blood 289 mg/dL (75-99)
--- NOTE | 2016-10-13 13:46 | XR ---
EXAMINATION TYPE: XR chest 1V portable DATE OF EXAM: 10/13/2016 1:39 PM COMPARISON: Prior chest x-ray one October 2016 HISTORY: Shortness of breath TECHNIQUE: Single frontal view of the chest is obtained. FINDINGS: Patient is rotated. The heart is enlarged. Lung volumes are low. Central vascularity and i nterstitium are increased. There are overlying cardiac leads. IMPRESSION: Correlate for congestive heart failure. Rotated exam. Follow-up is recommended.
--- NOTE | 2016-10-13 14:16 | P.PN ---
Subjective This is a pleasant 86-year-old female with past medical history significant for chronic persistent atrial fibrillation, congestive cardiac failure,, hypertension, hyperlipidemia. Who is regularly with Dr. Astudillo in the office. Patient did have a heart catheterization performed in 2011 which revealed a 50% lesion in the mid LAD, aortic peak gradient of 40. Patient presented to the hospital with symptoms of progressively worsening shortness of breath and associated peripheral edema. Chest x-ray on admission revealed congestive heart failure exacerbation. The patient was initiated on IV Lasix, her weight is down 1 kg today. Creatinine 1.3, BUN 36, sodium 138, INR 2.1. Echocardiogram with Doppler study was performed which revealed an ejection fraction of 50-55%. Repeat chest x-ray does show some improvement in heart failure although there is still evidence of fluid. Objective - Vital Signs Vital signs: Vital Signs Temp 97.5 F L 10/13/16 07:36 Pulse 55 L 10/13/16 11:23 Resp 17 10/13/16 11:23 BP 115/65 10/13/16 11:23 Pulse Ox 94 L 10/13/16 11:23 Intake & Output 10/12/16 10/13/16 10/13/16 18:59 06:59 18:59 Intake Total 660 300 300 Output Total 200 Balance 660 300 100 Weight 81.7 kg Intake: Oral 660 300 300 Output: Urine 200 Other: Voiding Method Toilet Toilet # Voids 2 2 1 - Exam PHYSICAL EXAMINATION: HEENT: Head is atraumatic, normocephalic. Pupils equal, round. Neck is supple. There is no elevated jugular venous pressure. HEART EXAMINATION: S1 and S2 systolic ejection murmur is heard. CHEST EXAMINATION: Lungs reveal fine rales and diminished air entry to bilateral bases ABDOMEN: Soft, nontender. Bowel sounds are heard. No organomegaly noted. EXTREMITIES: 2+ peripheral pulses with 2+ evidence of peripheral edema and no calf tenderness noted. NEUROLOGIC patient is awake, alert and oriented -3. - Labs CBC & Chem 7: 10/10/16 09:40 10/13/16 05:43 Labs: Abnormal Lab Results - Last 24 Hours (Table) 10/12/16 10/12/16 10/13/16 Range/Units 16:41 21:09 05:43 PT 20.2 H (9.0-12.0) sec Chloride (98-107) mmol/L Carbon Dioxide (22-30) mmol/L BUN (7-17) mg/dL Creatinine (0.52-1.04) mg/dL Glucose (74-99) mg/dL POC Glucose (mg/dL) 322 H 140 H (75-99) mg/dL Albumin (3.5-5.0) g/dL 10/13/16 10/13/16 10/13/16 Range/Units 05:43 06:03 11:33 PT (9.0-12.0) sec Chloride 93 L (98-107) mmol/L Carbon Dioxide 38 H (22-30) mmol/L BUN 36 H (7-17) mg/dL Creatinine 1.32 H (0.52-1.04) mg/dL Glucose 175 H (74-99) mg/dL POC Glucose (mg/dL) 172 H 289 H (75-99) mg/dL Albumin 3.4 L (3.5-5.0) g/dL Assessment and Plan Plan: Assessment and plan #1 congestive cardiac failure, diastolic in nature, acute on chronic. #2 aortic stenosis #3 hypertension #4 diabetes #5 chronic persistent atrial fibrillation, on Coumadin., INR 2.3. #6 hyperlipidemia Plan Continue current dose of IV Lasix, check lytes BUN and creatinine in the morning. DNP note has been reviewed, I agree with a documented findings and plan of care. Patient was seen and examined.
--- NOTE | 2016-10-13 15:51 | P.PN ---
Subjective This is a 86-year-old female that is admitted to the hospital with progressive worsening of lower x-ray day edema. Patient thereafter noted to have symptoms of difficulty breathing a day prior to admission. Patient was noted to be in significant heart failure. Patient's last known ejection fraction was within normal limits however has had a history of aortic stenosis. A repeat echocardiogram did show critical causing acute heart failure. Patient has been receiving IV diuretics has shown some improvement since admission. 10/13/2016 Patient states that she is doing better than on admission currently on 2 L a supplement oxygen denies significant tenderness in her lower extremities. Patient denies complaints of fevers and headaches, chills, nausea, vomiting, diarrhea. Objective - Vital Signs Vital signs: Vital Signs Temp 97 F L 10/13/16 15:16 Pulse 59 L 10/13/16 15:16 Resp 17 10/13/16 15:16 BP 117/77 10/13/16 15:16 Pulse Ox 92 L 10/13/16 15:16 Intake & Output 10/12/16 10/13/16 10/13/16 18:59 06:59 18:59 Intake Total 660 300 300 Output Total 200 Balance 660 300 100 Weight 81.7 kg Intake: Oral 660 300 300 Output: Urine 200 Other: Voiding Method Toilet Toilet # Voids 2 2 1 - Exam Gen. appearance oriented 3 does not appear to be in distress Neck is supple no JVD Lungs crackles at the bases however improved from a prior evaluation Heart significant systolic murmur appreciated at the aortic region 4 out of 6 gradient nonradiating to the carotids Abdomen is soft nontender no organomegaly Lower 70s 2+ pitting edema noted no significant erythema Neurologic exam no focal motor or sensory deficits noted - Labs CBC & Chem 7: 10/10/16 09:40 10/13/16 05:43 Labs: Abnormal Lab Results - Last 24 Hours (Table) 10/12/16 10/12/16 10/13/16 Range/Units 16:41 21:09 05:43 PT 20.2 H (9.0-12.0) sec Chloride (98-107) mmol/L Carbon Dioxide (22-30) mmol/L BUN (7-17) mg/dL Creatinine (0.52-1.04) mg/dL Glucose (74-99) mg/dL POC Glucose (mg/dL) 322 H 140 H (75-99) mg/dL Albumin (3.5-5.0) g/dL 10/13/16 10/13/16 10/13/16 Range/Units 05:43 06:03 11:33 PT (9.0-12.0) sec Chloride 93 L (98-107) mmol/L Carbon Dioxide 38 H (22-30) mmol/L BUN 36 H (7-17) mg/dL Creatinine 1.32 H (0.52-1.04) mg/dL Glucose 175 H (74-99) mg/dL POC Glucose (mg/dL) 172 H 289 H (75-99) mg/dL Albumin 3.4 L (3.5-5.0) g/dL Assessment and Plan Plan: #1 acute exacerbation of congestive heart failure diastolic in nature due to severe aortic stenosis #2 acute hypoxic respiratory failure secondary to above #3 severe/critical aortic stenosis #4 dyslipidemia #5 chronic persistent atrial fibrillation #6 diabetes mellitus #7 CK D stage III #8 hypertension Plan Continue diuretics. Repeat renal function name. Strict I's and O's. Contraction alkalosis noted continue ongoing care patient would be a candidate valve replacement either trans-aortic dependent on the workup prior
[2016-10-13 16:32] LABS: Glucose,Whole Blood 287 mg/dL (75-99)
[2016-10-13] MEDS: WARFARIN 2.5 MG TAB PO SCH (17:03)
[2016-10-13 21:09] LABS: Glucose,Whole Blood 199 mg/dL (75-99)
[2016-10-13] MEDS: MELATONIN 5 MG TABLET PO SCH (21:59)
[2016-10-13] MEDS: ATORVASTATIN 20 MG TAB PO SCH (22:00)
[2016-10-14 06:04] LABS: Glucose,Whole Blood 219 mg/dL (75-99)
[2016-10-14] MEDS: INSULIN LISPRO (humaLOG) 300 UNIT/3 ML VIAL SQ SCH ×4 (06:26→20:53)
[2016-10-14 07:23] LABS: INR 2.2 (<1.1); Prothrombin Time 21.4 sec (9.0-12.0)
[2016-10-14 07:34] LABS: Calcium 8.8 mg/dL (8.4-10.2); Potassium 3.7 mmol/L (3.5-5.1); Total Bilirubin 0.9 mg/dL (0.2-1.3); Total Protein 6.5 g/dL (6.3-8.2)
[2016-10-14] MEDS: FAMOTIDINE 20 MG TAB PO SCH (07:34)
[2016-10-14] MEDS: METOPROLOL TARTRATE 25 MG TAB PO SCH ×2 (07:34→20:53)
[2016-10-14] MEDS: GABAPENTIN 100 MG CAP PO SCH (07:34)
[2016-10-14] MEDS: FUROSEMIDE 10 MG/ML 4 ML VIAL IV SCH (07:39)
[2016-10-14 08:09] LABS: Aty Lym Flag Slight; CH 31.9; CHCM 32.9; HCT 39.8 % (34.0-46.0); HDW 3.46; MCHC 32.8 g/dL (31.0-37.0); MCV 97.6 fL (80.0-100.0); Mean Platelet Volume 7.3; Poikilocytosis Slight; RBC 4.07 m/uL (3.80-5.40); RDW 14.8 % (11.5-15.5); WBC 7.8 k/uL (3.8-10.6); WBC (Perox) 7.83
[2016-10-14 10:31] LABS: Add Differential Manual Differential
[2016-10-14 10:33] LABS: Manual Review Performed; Nucleated Red Blood Cells 0 /100 WBC (0-0); Total Cells Counted 100
[2016-10-14 10:34] LABS: Polychromasia Present
[2016-10-14 11:49] LABS: Glucose,Whole Blood 227 mg/dL (75-99)
--- NOTE | 2016-10-14 13:20 | P.PN ---
Subjective Principal diagnosis: Acute Pulmonary Edema This is a pleasant 86-year-old female with a past medical history significant for chronic atrial fibrillation, congestive heart failure, hypertension and hyperlipidemia. She follows regularly with Dr. Astudillo in the office. An intravascular symptoms of progressively worsening shortness of breath and associated peripheral edema. Chest x-ray on admission revealed congestive heart failure exacerbation. Was initiated on IV Lasix and has diuresed. BUN 31 and creatinine 1.26 today. Echocardiogram with Doppler study was performed which revealed an ejection fraction of 50 to 55% severe aortic stenosis. Her mentation today, patient is resting comfortably in bed, she is breathing better and has noticed some improvement in her edema. Objective - Vital Signs Vital signs: Vital Signs Temp 97 F L 10/14/16 07:32 Pulse 64 10/14/16 11:27 Resp 17 10/14/16 11:27 BP 119/65 10/14/16 11:27 Pulse Ox 92 L 10/14/16 11:27 Intake & Output 10/13/16 10/14/16 10/14/16 18:59 06:59 18:59 Intake Total 480 180 Output Total 200 380 Balance 280 -200 Weight 81.1 kg Intake: Oral 480 180 Output: Urine 200 380 Other: Voiding Method Toilet Toilet # Voids 1 3 - Exam PHYSICAL EXAMINATION: HEENT: Head is atraumatic, normocephalic. Pupils equal, round. Neck is supple. There is no elevated jugular venous pressure. HEART EXAMINATION: Heart sounds regular, S1 and S2 with a systolic murmur. CHEST EXAMINATION: Lungs reveal diminished air entry to bilateral bases. No chest wall tenderness is noted on palpation or with deep breathing. ABDOMEN: Soft, nontender. Bowel sounds are heard. No organomegaly noted. EXTREMITIES: 2+ peripheral pulses with evidence of 1-2+ peripheral edema and no calf tenderness noted. NEUROLOGIC patient is awake, alert and oriented x3. . - Labs CBC & Chem 7: 10/14/16 06:35 10/14/16 06:35 Labs: Abnormal Lab Results - Last 24 Hours (Table) 10/13/16 10/13/16 10/14/16 Range/Units 16:30 21:07 06:03 PT (9.0-12.0) sec Chloride (98-107) mmol/L Carbon Dioxide (22-30) mmol/L BUN (7-17) mg/dL Creatinine (0.52-1.04) mg/dL Glucose (74-99) mg/dL POC Glucose (mg/dL) 287 H 199 H 219 H (75-99) mg/dL 10/14/16 10/14/16 10/14/16 Range/Units 06:35 06:35 11:39 PT 21.4 H (9.0-12.0) sec Chloride 93 L (98-107) mmol/L Carbon Dioxide 39 H (22-30) mmol/L BUN 31 H (7-17) mg/dL Creatinine 1.26 H (0.52-1.04) mg/dL Glucose 180 H (74-99) mg/dL POC Glucose (mg/dL) 227 H (75-99) mg/dL Assessment and Plan Plan: Assessment and plan #1 Acute on chronic diastolic congestive heart failure #2 aortic stenosis #3 hypertension #4 diabetes #5 chronic atrial fibrillation, on Coumadin, INR therapeutic 6 hyperlipidemia We will switch the patient to by mouth Lasix. The patient will follow-up with Dr. Astudillo as an outpatient. LU[employer] note has been reviewed, I agree with a documented findings and plan of care. Patient was seen and examined.
[2016-10-14] MEDS ORDERED: FUROSEMIDE 10 MG/ML 4 ML VIAL IV STA (13:54)
--- NOTE | 2016-10-14 16:22 | P.PN ---
Subjective This is a 86-year-old female that is admitted to the hospital with progressive worsening of lower x-ray day edema. Patient thereafter noted to have symptoms of difficulty breathing a day prior to admission. Patient was noted to be in significant heart failure. Patient's last known ejection fraction was within normal limits however has had a history of aortic stenosis. A repeat echocardiogram did show critical causing acute heart failure. Patient has been receiving IV diuretics has shown some improvement since admission. 10/13/2016 Patient states that she is doing better than on admission currently on 2 L a supplement oxygen denies significant tenderness in her lower extremities. Patient denies complaints of fevers and headaches, chills, nausea, vomiting, diarrhea. 10/14/2001 Patient appears to be doing well however continues to be hypoxic on 2 L at rest. States her breathing is significantly improved. Denies having chest pains, difficulty breathing, abdominal pain, nausea, vomiting, diarrhea. Objective - Vital Signs Vital signs: Vital Signs Temp 97.5 F L 10/14/16 14:47 Pulse 60 10/14/16 14:47 Resp 16 10/14/16 14:47 BP 116/66 10/14/16 14:47 Pulse Ox 91 L 10/14/16 14:47 Intake & Output 10/13/16 10/14/16 10/14/16 18:59 06:59 18:59 Intake Total 480 560 Output Total 200 380 Balance 280 180 Weight 81.1 kg Intake: Oral 480 560 Output: Urine 200 380 Other: Voiding Method Toilet Toilet # Voids 1 3 - Exam Gen. appearance oriented 3 does not appear to be in distress Neck is supple no JVD Lungs crackles at the bases however improved from a prior evaluation Heart significant systolic murmur appreciated at the aortic region 4 out of 6 gradient nonradiating to the carotids Abdomen is soft nontender no organomegaly Lower extremities 1+ pitting edema noted no significant erythema Neurologic exam no focal motor or sensory deficits noted - Labs CBC & Chem 7: 10/14/16 06:35 10/14/16 06:35 Labs: Abnormal Lab Results - Last 24 Hours (Table) 10/13/16 10/13/16 10/14/16 Range/Units 16:30 21:07 06:03 PT (9.0-12.0) sec Chloride (98-107) mmol/L Carbon Dioxide (22-30) mmol/L BUN (7-17) mg/dL Creatinine (0.52-1.04) mg/dL Glucose (74-99) mg/dL POC Glucose (mg/dL) 287 H 199 H 219 H (75-99) mg/dL 10/14/16 10/14/16 10/14/16 Range/Units 06:35 06:35 11:39 PT 21.4 H (9.0-12.0) sec Chloride 93 L (98-107) mmol/L Carbon Dioxide 39 H (22-30) mmol/L BUN 31 H (7-17) mg/dL Creatinine 1.26 H (0.52-1.04) mg/dL Glucose 180 H (74-99) mg/dL POC Glucose (mg/dL) 227 H (75-99) mg/dL Assessment and Plan Plan: #1 acute exacerbation of congestive heart failure diastolic in nature due to severe aortic stenosis #2 acute hypoxic respiratory failure secondary to above #3 severe/critical aortic stenosis #4 dyslipidemia #5 chronic persistent atrial fibrillation #6 diabetes mellitus #7 CK D stage III #8 hypertension Plan Into new diuretics change Lasix 40 minutes by mouth twice a day however additional dose of Lasix will be given. Patient was not on supplemental oxygen prior to admission. We'll reassess her in the a.m. and regards to discharge. Continues to have crackles at bases. dvt prophylaxis.
[2016-10-14 17:12] LABS: Glucose,Whole Blood 206 mg/dL (75-99)
[2016-10-14] MEDS: WARFARIN 1.25 MG TAB PO SCH (17:20)
[2016-10-14] MEDS: FUROSEMIDE 40 MG TAB PO SCH (17:22)
[2016-10-14 20:41] LABS: Glucose,Whole Blood 220 mg/dL (75-99)
[2016-10-14] MEDS: MELATONIN 5 MG TABLET PO SCH (20:53)
[2016-10-14] MEDS: ATORVASTATIN 20 MG TAB PO SCH (20:53)
[2016-10-15 00:33] VITALS: TEMP 97.4
[2016-10-15 05:48] LABS: Glucose,Whole Blood 211 mg/dL (75-99)
[2016-10-15] MEDS: INSULIN LISPRO (humaLOG) 300 UNIT/3 ML VIAL SQ SCH (06:30)
[2016-10-15 06:47] LABS: Basophils # (A) 0.1 k/uL (0-0.2); Basophils % (A) 1 %; CHCM 32.4; Eosinophils # (A) 0.2 k/uL (0-0.7); Eosinophils % (A) 3 %; HCT 41.5 % (34.0-46.0); HDW 3.23; HGB 13.6 gm/dL (11.4-16.0); Luc # (Auto) 0.37; Luc % (Auto) 4; Lymphocytes # (A) 1.7 k/uL (1.0-4.8); Lymphocytes % (A) 20 %; MCH 32.5 pg (25.0-35.0); MCHC 32.7 g/dL (31.0-37.0); MCV 99.2 fL (80.0-100.0); Macrocytosis Slight; Mean Platelet Volume 7.4; Monocytes # (A) 0.8 k/uL (0-1.0); Monocytes % (A) 9 %; Neutrophils # (A) 5.4 k/uL (1.3-7.7); Neutrophils % (A) 63 %; RBC 4.18 m/uL (3.80-5.40); RDW 14.9 % (11.5-15.5); WBC 8.5 k/uL (3.8-10.6); WBC (Perox) 8.44
[2016-10-15 06:56] LABS: INR 2.1 (<1.1); Prothrombin Time 19.9 sec (9.0-12.0)
[2016-10-15 06:59] LABS: Calcium 9.1 mg/dL (8.4-10.2); Potassium 3.4 mmol/L (3.5-5.1); Total Bilirubin 1.1 mg/dL (0.2-1.3); Total Protein 6.6 g/dL (6.3-8.2)
[2016-10-15] MEDS: METOPROLOL TARTRATE 25 MG TAB PO SCH (08:03)
[2016-10-15] MEDS: FAMOTIDINE 20 MG TAB PO SCH (08:03)
[2016-10-15] MEDS: FUROSEMIDE 40 MG TAB PO SCH (08:03)
[2016-10-15] MEDS: GABAPENTIN 100 MG CAP PO SCH (08:04)
[2016-10-15 08:09] VITALS: RESP 16
--- NOTE | 2016-10-15 08:33 | XR ---
EXAMINATION TYPE: XR chest 1V portable DATE OF EXAM: 10/15/2016 7:18 AM COMPARISON: Prior chest x-ray four October 2016 HISTORY: Difficulty in breathing TECHNIQUE: Single frontal view of the chest is obtained. FINDINGS: The heart is enlarged. Central vascularity and interstitium are again prominent. No pneumo thorax or sizable effusion. IMPRESSION: Similar to prior exam, correlate for congestive heart failure, follow-up recommended.
[2016-10-15 11:45] VITALS: BP 129/63; PULSE 57
--- NOTE | 2016-10-15 12:01 | P.PN ---
Subjective Principal diagnosis: Acute Pulmonary Edema This is a pleasant 86-year-old female with a past medical history significant for chronic atrial fibrillation, congestive heart failure, hypertension and hyperlipidemia. She follows regularly with Dr. Astudillo in the office. An intravascular symptoms of progressively worsening shortness of breath and associated peripheral edema. Chest x-ray on admission revealed congestive heart failure exacerbation. Was initiated on IV Lasix and has diuresed. BUN 31 and creatinine 1.26 today. Echocardiogram with Doppler study was performed which revealed an ejection fraction of 50 to 55% severe aortic stenosis. Her mentation today, patient is resting comfortably in bed, she is breathing better and continues to notice improvement in her edema. Objective - Vital Signs Vital signs: Vital Signs Temp 97.4 F L 10/15/16 00:00 Pulse 57 L 10/15/16 11:43 Resp 16 10/15/16 11:43 BP 129/63 10/15/16 11:43 Pulse Ox 94 L 10/15/16 09:13 Intake & Output 10/14/16 10/15/16 10/15/16 18:59 06:59 18:59 Intake Total 800 100 260 Output Total 380 300 Balance 420 -200 260 Weight 81.1 kg Intake: Oral 800 100 260 Output: Urine 380 300 Other: Voiding Method Toilet Toilet Toilet # Voids 1 - Exam PHYSICAL EXAMINATION: HEENT: Head is atraumatic, normocephalic. Pupils equal, round. Neck is supple. There is no elevated jugular venous pressure. HEART EXAMINATION: Heart sounds regular, S1 and S2 with a systolic murmur. CHEST EXAMINATION: Lungs reveal diminished air entry to bilateral bases. No chest wall tenderness is noted on palpation or with deep breathing. ABDOMEN: Soft, nontender. Bowel sounds are heard. No organomegaly noted. EXTREMITIES: 2+ peripheral pulses with evidence of trace peripheral edema and no calf tenderness noted. NEUROLOGIC patient is awake, alert and oriented x3. . - Labs CBC & Chem 7: 10/15/16 06:30 10/15/16 06:30 Labs: Abnormal Lab Results - Last 24 Hours (Table) 10/14/16 10/14/16 10/15/16 Range/Units 16:47 20:39 05:46 PT (9.0-12.0) sec Potassium (3.5-5.1) mmol/L Chloride (98-107) mmol/L Carbon Dioxide (22-30) mmol/L BUN (7-17) mg/dL Creatinine (0.52-1.04) mg/dL Glucose (74-99) mg/dL POC Glucose (mg/dL) 206 H 220 H 211 H (75-99) mg/dL 10/15/16 10/15/16 Range/Units 06:30 06:30 PT 19.9 H (9.0-12.0) sec Potassium 3.4 L (3.5-5.1) mmol/L Chloride 93 L (98-107) mmol/L Carbon Dioxide 37 H (22-30) mmol/L BUN 31 H (7-17) mg/dL Creatinine 1.20 H (0.52-1.04) mg/dL Glucose 204 H (74-99) mg/dL POC Glucose (mg/dL) (75-99) mg/dL Assessment and Plan Plan: Assessment and plan #1 Acute on chronic diastolic congestive heart failure #2 aortic stenosis #3 hypertension #4 diabetes #5 chronic atrial fibrillation, on Coumadin, INR therapeutic 6 hyperlipidemia From cardiac standpoint, medications were reviewed, we will continue the same. The patient will follow-up with Dr. Astudillo as an outpatient. DIAMOND MOUNTER note has been reviewed, I agree with a documented findings and plan of care. Patient was seen and examined.
[2016-10-15 12:02] LABS: Glucose,Whole Blood 269 mg/dL (75-99)
--- NOTE | 2016-10-15 13:44 | P.DS ---
Providers Date of admission: 10/10/16 11:06 Attending physician: Ileana Frye [facility] Course: This is a 86-year-old female that is admitted to the hospital with progressive worsening of lower x-ray day edema. Patient thereafter noted to have symptoms of difficulty breathing a day prior to admission. Patient was noted to be in significant heart failure. Patient's last known ejection fraction was within normal limits however has had a history of aortic stenosis. A repeat echocardiogram did show critical causing acute heart failure. Patient has been receiving IV diuretics has shown some improvement since admission. 10/13/2016 Patient states that she is doing better than on admission currently on 2 L a supplement oxygen denies significant tenderness in her lower extremities. Patient denies complaints of fevers and headaches, chills, nausea, vomiting, diarrhea. 10/14/2001 Patient appears to be doing well however continues to be hypoxic on 2 L at rest. States her breathing is significantly improved. Denies having chest pains, difficulty breathing, abdominal pain, nausea, vomiting, diarrhea. 10/15/2016 is ambulating without much difficulty on room air is titrated of supplemental oxygen Denies having any fevers, chills, nausea, vomiting, diarrhea at this time. - Exam Gen. appearance oriented 3 does not appear to be in distress Neck is supple no JVD Lungs good air exchange no rhonchi wheezing or crackles appreciated Heart significant systolic murmur appreciated at the aortic region 4 out of 6 gradient nonradiating to the carotids Abdomen is soft nontender no organomegaly Lower extremities trace edema significantly improved from admission Neurologic exam no focal motor or sensory deficits noted Assessment and Plan Plan: #1 acute exacerbation of congestive heart failure diastolic in nature due to severe aortic stenosis #2 acute hypoxic respiratory failure secondary to above #3 severe/critical aortic stenosis #4 dyslipidemia #5 chronic persistent atrial fibrillation #6 diabetes mellitus #7 CK D stage III #8 hypertension Discharge to correction on Lasix 60 mg by mouth twice a day. Patient will need to follow up with cardiology in a week patient will need a workup of her coronaries thereafter may be considered a candidate for TVAR, pending on the results. Patient does have critical stenosis . Plan - Discharge Summary New Discharge Prescriptions: Furosemide [Lasix] 60 mg PO BID@0900,1600 #20 tab Hydrocodone/Acetaminophen [[place] 7.5-325] 1 tab PO QID PRN #20 tablet PRN Reason: Pain Potassium Chloride ER [K-Dur 20] 20 meq PO BID #60 tab Discharge Medication List Gabapentin [Neurontin] 100 mg PO DAILY 04/26/14 [History] glipiZIDE [Glucotrol] 5 mg PO AC-BID 04/26/14 [History] Betamethasone Dipropionate [Diprolene AF 0.05% Cream] 1 applic TOPICAL BID 10/10 [History] Melatonin 5 mg PO HS 10/10/16 [History] Ranitidine HCl [Zantac] 150 mg PO BID 10/10/16 [History] Simvastatin [Zocor] 40 mg PO HS 10/10/16 [History] Warfarin [Coumadin] 2.5 mg PO SUTUTHSA 10/10/16 [History] Warfarin [Coumadin] 3.75 mg PO MOWEFR 10/10/16 [History] Furosemide [Lasix] 60 mg PO BID@0900,1600 #20 tab 10/15/16 [Rx] Hydrocodone/Acetaminophen [[place] 7.5-325] 1 tab PO QID PRN #20 tablet 10/15/16 [ Rx] Metoprolol Tartrate [Lopressor] 25 mg PO BID tab 10/15/16 [Rx] Potassium Chloride ER [K-Dur 20] 20 meq PO BID #60 tab 10/15/16 [Rx] Follow up Appointment(s)/Referral(s): Joe Yu MD [STAFF PHYSICIAN] - 1 Week Alejandro Hilario DO [Primary Care Provider] - 1-2 days Discharge Disposition: TRANSFER TO SNF/ECF
== END 2016-10-15 15:53 | DRG 291 ==
LOC: EC 09:17 → 6SEL 11:06
PROVIDERS: ADMIT Hospitalist; ATTEND Hospitalist
DX: I13.0 Hypertensive heart and chronic kidney disease with heart failure and stage 1 through stage 4 chronic kidney disease, or unspecified chronic kidney disease (principal); I50.33 Acute on chronic diastolic (congestive) heart failure; J96.01 Acute respiratory failure with hypoxia; E11.22 Type 2 diabetes mellitus with diabetic chronic kidney disease; I48.1 Persistent atrial fibrillation; J44.9 Chronic obstructive pulmonary disease, unspecified; I35.0 Nonrheumatic aortic (valve) stenosis; E78.5 Hyperlipidemia, unspecified; H40.9 Unspecified glaucoma; I25.10 Atherosclerotic heart disease of native coronary artery without angina pectoris; I48.2 Chronic atrial fibrillation; K21.9 Gastro-esophageal reflux disease without esophagitis; N18.3 Chronic kidney disease, stage 3 (moderate); R79.1 Abnormal coagulation profile; T45.515A Adverse effect of anticoagulants, initial encounter; Z79.01 Long term (current) use of anticoagulants; Z79.84 Long term (current) use of oral hypoglycemic drugs; Z79.899 Other long term (current) drug therapy; Z87.891 Personal history of nicotine dependence; Z88.0 Allergy status to penicillin; Z88.2 Allergy status to sulfonamides
CPT/HCPCS: 36415; 71010; 71020; 80048; 80053; 82550; 82553; 83036; 83735; 83880; 84484; 85025; 85610; 85730; 93005; 93306; 94760; 96374; 99291

== ENCOUNTER 2017-07-15 09:37 | Inpatient (IN) | payer MEDICARE, OTHER ==
[2017-07-15] MEDS ORDERED: FUROSEMIDE 10 MG/ML 4 ML VIAL IV STA (09:48)
[2017-07-15] MEDS ORDERED: methylPREDNISolone SOD SUCCI 125 MG/2 ML VIAL IV STA (09:48)
[2017-07-15] MEDS ORDERED: ALBUTEROL NEBULIZED 2.5 MG/3 ML INHALATION STA (09:48)
[2017-07-15] MEDS ORDERED: IPRATROPIUM 0.5 MG/2.5 ML NEBU INHALATION STA (09:48)
--- NOTE | 2017-07-15 09:54 | ED ---
General Adult HPI - General Chief complaint: Shortness of Breath Stated complaint: Low O2 Time Seen by Provider: 07/15/17 09:37 Source: family, EMS, RN notes reviewed Mode of arrival: EMS Limitations: physical limitation - History of Present Illness Initial comments: This is an 87-year-old female presents emergency department with past medical history significant for heart failure and COPD. Patient comes in today because her pulse ox was low at the skilled nursing. Patient also complains of a sore throat. Patient denies any recent fever chills or cough. Patient denies any chest pain or palpitations. Patient denies abdominal pain patient denies nausea vomiting diarrhea. Patient also is complaining that she needs to urinate. - Related Data Home Medications Medication Instructions Recorded Confirmed glipiZIDE [Glucotrol] 5 mg PO AC-BID 04/26/14 07/15/17 Betamethasone Dipropionate 1 applic TOPICAL BID 10/10/16 07/15/17 [Diprolene AF 0.05% Cream] Melatonin 5 mg PO HS 10/10/16 07/15/17 ALPRAZolam [Xanax] 0.25 mg PO Q6H PRN 07/15/17 07/15/17 Acetaminophen [Tylenol] 650 mg PO Q4H PRN 07/15/17 07/15/17 Aspirin 325 mg PO HS 07/15/17 07/15/17 Diltiazem HCl [Diltiazem ER] 120 mg PO DAILY 07/15/17 07/15/17 Escitalopram [Lexapro] 5 mg PO DAILY 07/15/17 07/15/17 Fluticasone/Vilanterol [Breo 1 puff INHALATION RT-DAILY 07/15/17 07/15/17 Ellipta 200-25 Mcg INH] Furosemide [Lasix] 60 mg PO DAILY@0700 07/15/17 07/15/17 Gabapentin [Neurontin] 300 mg PO DAILY 07/15/17 07/15/17 Hydrocodone/Acetaminophen [[place] 1 tab PO Q6H PRN 07/15/17 07/15/17 7.5-325] Ipratropium-Albuterol Nebulize 3 ml INHALATION RT-TID 07/15/17 07/15/17 [Duoneb 0.5 mg-3 mg/3 ml Soln] Latanoprost Ophth [Xalatan 0.005%] 1 drops BOTH EYES HS 07/15/17 07/15/17 [place] Suspension 30 ml PO Q4H PRN 07/15/17 07/15/17 Natural Tears 2 drops BOTH EYES Q6H PRN 07/15/17 07/15/17 Potassium Chloride ER [K-Dur 20] 20 meq PO DAILY 07/15/17 07/15/17 Simvastatin [Zocor] 40 mg PO HS 07/15/17 07/15/17 Warfarin [Coumadin] 3 mg PO MOFR 07/15/17 07/15/17 Warfarin [Coumadin] 6 mg PO SUTUWETHSA 07/15/17 07/15/17 Previous Rx's Medication Instructions Recorded Metoprolol Tartrate [Lopressor] 25 mg PO BID tab 10/15/16 Allergies Allergy/AdvReac Type Severity Reaction Status Date / Time Penicillins Allergy Unknown Verified 07/15/17 11:08 Sulfa (Sulfonamide Allergy Unknown Verified 07/15/17 11:08 Antibiotics) Review of Systems ROS Statement: Those systems with pertinent positive or pertinent negative responses have been documented in the HPI. ROS Other: All systems not noted in ROS Statement are negative. Past Medical History Past Medical History: Atrial Fibrillation, Coronary Artery Disease (CAD), Heart Failure, COPD, Diabetes Mellitus, Eye Disorder, GERD/Reflux, Hyperlipidemia, Hypertension, Osteoarthritis (OA) Additional Past Medical History / Comment(s): NIDDM type II, murmur, hiatal hernia, bilateral glaucoma, arthritis multiple joints, urinary leakage-uses pads. History of Any Multi-Drug Resistant Organisms: None Reported Past Surgical History: Appendectomy, Cholecystectomy, Heart Catheterization, Hysterectomy, Joint Replacement, Orthopedic Surgery, Tonsillectomy, Tubal Ligation Additional Past Surgical History / Comment(s): 2006 cardiac cath-tx medically, colonoscopy/EGD, total L knee arthroplasty, R shoulder rotator cuff repair, bunions bilateral feet, bilateral cataract removal and trabeculectomy. Past Anesthesia/Blood Transfusion Reactions: No Reported Reaction Past Psychological History: Anxiety Smoking Status: Former smoker Past Alcohol Use History: None Reported Past Drug Use History: None Reported - Past Family History Father Additional Family Medical History / Comment(s): Father had "heart problems" and at 82 yrs. Mother Additional Family Medical History / Comment(s): Mother of a "bad heart" at the age of 70yrs. General Exam - General Exam Comments Initial Comments: GENERAL: Patient is well-developed and well-nourished. Patient is nontoxic and well- hydrated and is in mild distress. ENT: Neck is soft and supple. No significant lymphadenopathy is noted. Oropharynx is clear. Moist mucous membranes. Neck has full range of motion without eliciting any pain. EYES: The sclera were anicteric and conjunctiva were pink and moist. Extraocular movements were intact and pupils were equal round and reactive to light. Eyelids were unremarkable. PULMONARY: Patient has expiratory wheezing diffusely CARDIOVASCULAR: There is a regular rate and rhythm without any murmurs gallops or rubs. ABDOMEN: Soft and nontender with normal bowel sounds. No palpable organomegaly was noted. There is no palpable pulsatile mass. SKIN: Skin is clear with no lesions or rashes and otherwise unremarkable. NEUROLOGIC: Patient is alert and oriented x3. Cranial nerves II through XII are grossly intact. Motor and sensory are also intact. Normal speech, volume and content. Symmetrical smile. MUSCULOSKELETAL: Normal extremities with adequate strength and full range of motion. Patient has 2+ edema bilaterally LYMPHATICS: No significant lymphadenopathy is noted PSYCHIATRIC: Normal psychiatric evaluation. Normal interpersonal interactions appears functionally intact in deals appropriately with others. No signs of depression. No signs of anxiety. Limitations: physical limitation Course Vital Signs 07/15/17 07/15/17 07/15/17 09:38 10:34 10:36 Temperature 98.0 F Pulse Rate 86 74 Respiratory 24 22 Rate Blood Pressure 165/94 O2 Sat by Pulse 94 L Oximetry 07/15/17 07/15/17 07/15/17 10:49 10:59 11:28 Temperature Pulse Rate 77 82 85 Respiratory 18 Rate Blood Pressure 145/87 O2 Sat by Pulse 93 L Oximetry Medical Decision Making - Medical Decision Making EKG shows atrial fibrillation with occasional PVC at 91 bpm QRS is under 14 QT interval 412 QTC is 506. Patient's EKG shows no ST segment elevation or depression or T wave abnormalities are noted. Chest x-ray shows congestive heart failure. I gave the patient a breathing treatment because she was wheezing as well as 40 of Lasix. Patient stated after this was done she was feeling considerably better. I spoke with because he agreed to admit the patient admitted the patient I consult to cardiology. - Lab Data Result diagrams: 07/15/17 10:14 07/15/17 10:14 Lab Results 07/15/17 07/15/17 07/15/17 Range/Units 09:44 10:14 10:14 WBC 10.4 (3.8-10.6) k/uL RBC 4.26 (3.80-5.40) m/uL Hgb 13.2 (11.4-16.0) gm/dL Hct 42.8 (34.0-46.0) % MCV 100.7 H (80.0-100.0) fL MCH 31.0 (25.0-35.0) pg MCHC 30.8 L (31.0-37.0) g/dL RDW 15.5 (11.5-15.5) % Plt Count 265 (150-450) k/uL Neutrophils % 76 % Lymphocytes % 11 % Monocytes % 7 % Eosinophils % 4 % Basophils % 1 % Neutrophils # 7.9 H (1.3-7.7) k/uL Lymphocytes # 1.1 (1.0-4.8) k/uL Monocytes # 0.7 (0-1.0) k/uL Eosinophils # 0.4 (0-0.7) k/uL Basophils # 0.1 (0-0.2) k/uL Hypochromasia Slight Macrocytosis Slight PT (9.0-12.0) sec INR (<1.2) APTT (22.0-30.0) sec Sodium (137-145) mmol/L Potassium (3.5-5.1) mmol/L Chloride (98-107) mmol/L Carbon Dioxide (22-30) mmol/L Anion Gap mmol/L BUN (7-17) mg/dL Creatinine (0.52-1.04) mg/dL Est GFR (MDRD) Af Amer (>60 ml/min/1.73 sqM) Est GFR (MDRD) Non-Af (>60 ml/min/1.73 sqM) Glucose (74-99) mg/dL Calcium (8.4-10.2) mg/dL Magnesium (1.6-2.3) mg/dL Total Bilirubin (0.2-1.3) mg/dL AST (14-36) U/L ALT (9-52) U/L Alkaline Phosphatase (38-126) U/L Total Creatine Kinase 64 (30-135) U/L CK-MB (CK-2) 3.1 H* (0.0-2.4) ng/mL CK-MB (CK-2) Rel Index 4.8 Troponin I 0.082 H* (0.000-0.034) ng/mL NT-Pro-B Natriuret Pep pg/mL Total Protein (6.3-8.2) g/dL Albumin (3.5-5.0) g/dL Urine Color Urine Appearance (Clear) Urine pH (5.0-8.0) Ur Specific [place] (1.001-1.035) Urine Protein (Negative) Urine Glucose (UA) (Negative) Urine Ketones (Negative) Urine Blood (Negative) Urine Nitrite (Negative) Urine Bilirubin (Negative) Urine Urobilinogen (<2.0) mg/dL Ur Leukocyte Esterase (Negative) Urine RBC (0-5) /hpf Urine WBC (0-5) /hpf Ur Squamous Epith Cells (0-4) /hpf Urine Bacteria (None) /hpf Urine Mucus (None) /hpf Group A Strep Rapid Negative (Negative) 07/15/17 07/15/17 07/15/17 Range/Units 10:14 10:14 10:14 WBC (3.8-10.6) k/uL RBC (3.80-5.40) m/uL Hgb (11.4-16.0) gm/dL Hct (34.0-46.0) % MCV (80.0-100.0) fL MCH (25.0-35.0) pg MCHC (31.0-37.0) g/dL RDW (11.5-15.5) % Plt Count (150-450) k/uL Neutrophils % % Lymphocytes % % Monocytes % % Eosinophils % % Basophils % % Neutrophils # (1.3-7.7) k/uL Lymphocytes # (1.0-4.8) k/uL Monocytes # (0-1.0) k/uL Eosinophils # (0-0.7) k/uL Basophils # (0-0.2) k/uL Hypochromasia Macrocytosis PT 14.0 H (9.0-12.0) sec INR 1.5 H (<1.2) APTT 25.3 (22.0-30.0) sec Sodium 139 (137-145) mmol/L Potassium 4.6 (3.5-5.1) mmol/L Chloride 97 L (98-107) mmol/L Carbon Dioxide 31 H (22-30) mmol/L Anion Gap 11 mmol/L BUN 26 H (7-17) mg/dL Creatinine 1.05 H (0.52-1.04) mg/dL Est GFR (MDRD) Af Amer >60 (>60 ml/min/1.73 sqM) Est GFR (MDRD) Non-Af 50 (>60 ml/min/1.73 sqM) Glucose 247 H (74-99) mg/dL Calcium 9.5 (8.4-10.2) mg/dL Magnesium 1.9 (1.6-2.3) mg/dL Total Bilirubin 0.6 (0.2-1.3) mg/dL AST 21 (14-36) U/L ALT 16 (9-52) U/L Alkaline Phosphatase 91 (38-126) U/L Total Creatine Kinase (30-135) U/L CK-MB (CK-2) (0.0-2.4) ng/mL CK-MB (CK-2) Rel Index Troponin I (0.000-0.034) ng/mL NT-Pro-B Natriuret Pep 4010 pg/mL Total Protein 7.5 (6.3-8.2) g/dL Albumin 4.0 (3.5-5.0) g/dL Urine Color Urine Appearance (Clear) Urine pH (5.0-8.0) Ur Specific [place] (1.001-1.035) Urine Protein (Negative) Urine Glucose (UA) (Negative) Urine Ketones (Negative) Urine Blood (Negative) Urine Nitrite (Negative) Urine Bilirubin (Negative) Urine Urobilinogen (<2.0) mg/dL Ur Leukocyte Esterase (Negative) Urine RBC (0-5) /hpf Urine WBC (0-5) /hpf Ur Squamous Epith Cells (0-4) /hpf Urine Bacteria (None) /hpf Urine Mucus (None) /hpf Group A Strep Rapid (Negative) 07/15/17 Range/Units 10:14 WBC (3.8-10.6) k/uL RBC (3.80-5.40) m/uL Hgb (11.4-16.0) gm/dL Hct (34.0-46.0) % MCV (80.0-100.0) fL MCH (25.0-35.0) pg MCHC (31.0-37.0) g/dL RDW (11.5-15.5) % Plt Count (150-450) k/uL Neutrophils % % Lymphocytes % % Monocytes % % Eosinophils % % Basophils % % Neutrophils # (1.3-7.7) k/uL Lymphocytes # (1.0-4.8) k/uL Monocytes # (0-1.0) k/uL Eosinophils # (0-0.7) k/uL Basophils # (0-0.2) k/uL Hypochromasia Macrocytosis PT (9.0-12.0) sec INR (<1.2) APTT (22.0-30.0) sec Sodium (137-145) mmol/L Potassium (3.5-5.1) mmol/L Chloride (98-107) mmol/L Carbon Dioxide (22-30) mmol/L Anion Gap mmol/L BUN (7-17) mg/dL Creatinine (0.52-1.04) mg/dL Est GFR (MDRD) Af Amer (>60 ml/min/1.73 sqM) Est GFR (MDRD) Non-Af (>60 ml/min/1.73 sqM) Glucose (74-99) mg/dL Calcium (8.4-10.2) mg/dL Magnesium (1.6-2.3) mg/dL Total Bilirubin (0.2-1.3) mg/dL AST (14-36) U/L ALT (9-52) U/L Alkaline Phosphatase (38-126) U/L Total Creatine Kinase (30-135) U/L CK-MB (CK-2) (0.0-2.4) ng/mL CK-MB (CK-2) Rel Index Troponin I (0.000-0.034) ng/mL NT-Pro-B Natriuret Pep pg/mL Total Protein (6.3-8.2) g/dL Albumin (3.5-5.0) g/dL Urine Color Light Yellow Urine Appearance Clear (Clear) Urine pH 6.0 (5.0-8.0) Ur Specific [place] 1.007 (1.001-1.035) Urine Protein 2+ H (Negative) Urine Glucose (UA) 1+ H (Negative) Urine Ketones Negative (Negative) Urine Blood Negative (Negative) Urine Nitrite Negative (Negative) Urine Bilirubin Negative (Negative) Urine Urobilinogen <2.0 (<2.0) mg/dL Ur Leukocyte Esterase Negative (Negative) Urine RBC <1 (0-5) /hpf Urine WBC 1 (0-5) /hpf Ur Squamous Epith Cells <1 (0-4) /hpf Urine Bacteria Rare H (None) /hpf Urine Mucus Rare H (None) /hpf Group A Strep Rapid (Negative) Critical Care Time Critical Care Time: Yes Total Critical Care Time: 35 Disposition Clinical Impression: Acute pulmonary edema Disposition: ADMITTED IP TO THIS HOSP Referrals: Migdalia Neville MD [Primary Care Provider] - 1-2 days Time of Disposition: 11:41
[2017-07-15 10:33] LABS: Basophils # (A) 0.1 k/uL (0-0.2); Basophils % (A) 1 %; Eosinophils # (A) 0.4 k/uL (0-0.7); Eosinophils % (A) 4 %; HCT 42.8 % (34.0-46.0); HGB 13.2 gm/dL (11.4-16.0); Hypochromasia Slight; Lymphocytes # (A) 1.1 k/uL (1.0-4.8); Lymphocytes % (A) 11 %; MCHC 30.8 g/dL (31.0-37.0); MCV 100.7 fL (80.0-100.0); Macrocytosis Slight; Mean Platelet Volume 7.6; Monocytes # (A) 0.7 k/uL (0-1.0); Monocytes % (A) 7 %; Neutrophils # (A) 7.9 k/uL (1.3-7.7); Neutrophils % (A) 76 %; Platelet Count 265 k/uL (150-450); RBC 4.26 m/uL (3.80-5.40); RDW 15.5 % (11.5-15.5); WBC 10.4 k/uL (3.8-10.6)
[2017-07-15 10:42] LABS: Appearance,Urine Clear (Clear); Bacteria,Urine Rare /hpf; Bilirubin,Urine Negative (Negative); Blood,Urine Negative (Negative); Color,Urine Light Yellow; Glucose,Urine (UA) 1+ (Negative); Ketones,Urine Negative (Negative); Leukocyte Esterase,Urine Negative (Negative); Mucus,Urine Rare /hpf; Nitrite,Urine Negative (Negative); Protein,Urine 2+ (Negative); RBC,Urine <1 /hpf (0-5); Specific Gravity,Urine 1.007 (1.001-1.035); Squamous Epithelial Cell,Urine <1 /hpf (0-4); Urobilinogen,Urine <2.0 mg/dL (<2.0); WBC,Urine 1 /hpf (0-5)
[2017-07-15 10:43] LABS: INR 1.5 (<1.2); Partial Thromboplastin Time 25.3 sec (22.0-30.0)
[2017-07-15 10:46] LABS: ALT 16 U/L (9-52); AST 21 U/L (14-36); Alkaline Phosphatase 91 U/L (38-126); Anion Gap 11 mmol/L; Blood Urea Nitrogen 26 mg/dL (7-17); Calcium 9.5 mg/dL (8.4-10.2); Carbon Dioxide 31 mmol/L (22-30); Chloride 97 mmol/L (98-107); Glucose 247 mg/dL (74-99); Magnesium 1.9 mg/dL (1.6-2.3); Potassium 4.6 mmol/L (3.5-5.1); Sodium 139 mmol/L (137-145); Total Bilirubin 0.6 mg/dL (0.2-1.3); Total Protein 7.5 g/dL (6.3-8.2)
[2017-07-15 11:13] LABS: Creatine Kinase MB 3.1 ng/mL (0.0-2.4)
[2017-07-15 11:14] LABS: Troponin I 0.082 ng/mL (0.000-0.034)
[2017-07-15] MEDS ORDERED: NITROGLYCERIN OINT 1 INCH/GM PACKET TOPICAL STA (11:26)
--- NOTE | 2017-07-15 11:26 | XR ---
EXAMINATION TYPE: XR chest 2V DATE OF EXAM: 07/15/2017 HISTORY: difficulty breathing. REFERENCE: Previous study dated 10/15/2016. FINDINGS: The heart is enlarged. There is vascular congestion and pulmonary edema. I suspect small ef fusions. IMPRESSION: WORSENING CHANGES OF CONGESTIVE HEART FAILURE.
[2017-07-15] MEDS: FUROSEMIDE 10 MG/ML 4 ML VIAL IV SCH ×2 (15:11→23:36)
[2017-07-15] MEDS ORDERED: ACETAMINOPHEN TAB 325 MG TAB PO PRN (15:30)
[2017-07-15] MEDS ORDERED: MAG HYDROX/AL HYDROX/SIMETH 30 ML CUP PO PRN (15:30)
[2017-07-15] MEDS: IPRATROPIUM-ALBUTEROL 3 ML NEB INHALATION SCH ×2 (16:27→21:07)
--- NOTE | 2017-07-15 16:30 | P.HPIM ---
History of Present Illness 82-year-old female with known history of chronic diastolic dysfunction is found to be hypoxic at group home was brought in here patient is comparing of shortness of breath complaining of orthopnea and denied any PND patient is found to have pulmonary edema with elevated BNP I'm unable to assess JVD patient uses 60 mg of Lasix at home patient was started on 40 mg 3 times a day of Lasix here with improvement in some of her symptoms. Patient is comparing of cough with white sputum production denied any fever chills. Patient does have history of atrial fibrillation presently rate controlled at 90. Patient does have history of valvular A. fib with a aortic stenosis severe and patient is on Coumadin for anticoagulation. Patient does have chronic A. fib. Patient denied any fever chills Review of Systems REVIEW OF SYSTEMS: CONSTITUTIONAL: No fever, no malaise, no fatigue. HEENT: No recent visual problems or hearing problems. Denied any sore throat. CARDIOVASCULAR: As mentioned in HPI PULMONARY: no hemoptysis. GASTROINTESTINAL: No diarrhea, no nausea, no vomiting, no abdominal pain. Normoactive bowel sounds. NEUROLOGICAL: No headaches, no weakness, no numbness. HEMATOLOGICAL: Denies any bleeding or petechiae. GENITOURINARY: Denies any burning micturition, frequency, or urgency. MUSCULOSKELETAL/RHEUMATOLOGICAL: Denies any joint pain, swelling, or any muscle pain. ENDOCRINE: Denies any polyuria or polydipsia. The rest of the 14-point review of systems is negative. Past Medical History Past Medical History: Atrial Fibrillation, Coronary Artery Disease (CAD), Heart Failure, COPD, Diabetes Mellitus, Eye Disorder, GERD/Reflux, Hyperlipidemia, Hypertension, Osteoarthritis (OA) Additional Past Medical History / Comment(s): NIDDM type II, murmur, hiatal hernia, bilateral glaucoma, arthritis multiple joints, urinary leakage-uses pads. History of Any Multi-Drug Resistant Organisms: None Reported Past Surgical History: Appendectomy, Cholecystectomy, Heart Catheterization, Hysterectomy, Joint Replacement, Orthopedic Surgery, Tonsillectomy, Tubal Ligation Additional Past Surgical History / Comment(s): 2006 cardiac cath-tx medically, colonoscopy/EGD, total L knee arthroplasty, R shoulder rotator cuff repair, bunions bilateral feet, bilateral cataract removal and trabeculectomy. Past Anesthesia/Blood Transfusion Reactions: No Reported Reaction Past Psychological History: Anxiety Smoking Status: Former smoker Past Alcohol Use History: None Reported Additional Past Alcohol Use History / Comment(s): Pt startes smoking in 1959 and quit in 1981. Past Drug Use History: None Reported - Past Family History Father Additional Family Medical History / Comment(s): Father had "heart problems" and at 82 yrs. Mother Additional Family Medical History / Comment(s): Mother of a "bad heart" at the age of 70yrs. Medications and Allergies Home Medications Medication Instructions Recorded Confirmed Type glipiZIDE [Glucotrol] 5 mg PO AC-BID 04/26/14 07/15/17 History Betamethasone Dipropionate 1 applic TOPICAL BID 10/10/16 07/15/17 History [Diprolene AF 0.05% Cream] Melatonin 5 mg PO HS 10/10/16 07/15/17 History Metoprolol Tartrate [Lopressor] 25 mg PO BID tab 10/15/16 07/15/17 Rx ALPRAZolam [Xanax] 0.25 mg PO Q6H PRN 07/15/17 07/15/17 History Acetaminophen [Tylenol] 650 mg PO Q4H PRN 07/15/17 07/15/17 History Aspirin 325 mg PO HS 07/15/17 07/15/17 History Diltiazem HCl [Diltiazem ER] 120 mg PO DAILY 07/15/17 07/15/17 History Escitalopram [Lexapro] 5 mg PO DAILY 07/15/17 07/15/17 History Fluticasone/Vilanterol [Breo 1 puff INHALATION RT-DAILY 07/15/17 07/15/17 History Ellipta 200-25 Mcg INH] Furosemide [Lasix] 60 mg PO DAILY@0700 07/15/17 07/15/17 History Gabapentin [Neurontin] 300 mg PO DAILY 07/15/17 07/15/17 History Hydrocodone/Acetaminophen [[place] 1 tab PO Q6H PRN 07/15/17 07/15/17 History 7.5-325] Ipratropium-Albuterol Nebulize 3 ml INHALATION RT-TID 07/15/17 07/15/17 History [Duoneb 0.5 mg-3 mg/3 ml Soln] Latanoprost Ophth [Xalatan 0.005%] 1 drops BOTH EYES HS 07/15/17 07/15/17 History [place] Suspension 30 ml PO Q4H PRN 07/15/17 07/15/17 History Natural Tears 2 drops BOTH EYES Q6H PRN 07/15/17 07/15/17 History Potassium Chloride ER [K-Dur 20] 20 meq PO DAILY 07/15/17 07/15/17 History Simvastatin [Zocor] 40 mg PO HS 07/15/17 07/15/17 History Warfarin [Coumadin] 3 mg PO MOFR 07/15/17 07/15/17 History Warfarin [Coumadin] 6 mg PO SUTUWETHSA 07/15/17 07/15/17 History Allergies Allergy/AdvReac Type Severity Reaction Status Date / Time Penicillins Allergy Unknown Verified 07/15/17 11:08 Sulfa (Sulfonamide Allergy Unknown Verified 07/15/17 11:08 Antibiotics) Physical Exam Vitals: Vital Signs Temp Pulse Pulse Resp BP BP Pulse Ox 07/15/17 13:52 99 24 07/15/17 12:25 99.4 F 99 24 138/81 91 L 07/15/17 11:54 97.5 F L 90 18 161/76 93 L 07/15/17 11:28 85 18 145/87 93 L 07/15/17 10:59 82 07/15/17 10:49 77 07/15/17 10:36 74 07/15/17 10:34 22 07/15/17 09:38 98.0 F 86 24 165/94 94 L Intake and Output 07/15/17 07/15/17 07/15/17 06:59 14:59 22:59 Other: # Voids 3 Weight 90.265 kg Patient Weight 07/16/17 06:59 Weight 90.265 kg PHYSICAL EXAMINATION: GENERAL: The patient is alert and oriented x3, is in mild respiratory distress. Well developed, well nourished. HEENT: Pupils are round and equally reacting to light. EOMI. No scleral icterus. No conjunctival pallor. Normocephalic, atraumatic. No pharyngeal erythema. No thyromegaly. CARDIOVASCULAR: S1 and S2 present. There is systolic murmur in that area along with S3 Patient may have elevated JVD I'm unable to appreciate JVD because of her breathing pattern PULMONARY: Coarse crackles and expiratory wheezing was appreciated ABDOMEN: Soft, nontender, nondistended, normoactive bowel sounds. No palpable organomegaly. MUSCULOSKELETAL: No joint swelling or deformity. EXTREMITIES: No cyanosis, clubbing, or pedal edema. NEUROLOGICAL: Gross neurological examination did not reveal any focal deficits. SKIN: No rashes. Results CBC & Chem 7: 07/15/17 10:14 07/15/17 10:14 Labs: Abnormal Lab Results - Last 24 Hours (Table) 07/15/17 07/15/17 07/15/17 Range/Units 10:14 10:14 10:14 MCV 100.7 H (80.0-100.0) fL MCHC 30.8 L (31.0-37.0) g/dL Neutrophils # 7.9 H (1.3-7.7) k/uL PT (9.0-12.0) sec INR (<1.2) Chloride 97 L (98-107) mmol/L Carbon Dioxide 31 H (22-30) mmol/L BUN 26 H (7-17) mg/dL Creatinine 1.05 H (0.52-1.04) mg/dL Glucose 247 H (74-99) mg/dL CK-MB (CK-2) 3.1 H* (0.0-2.4) ng/mL Troponin I 0.082 H* (0.000-0.034) ng/mL Urine Protein (Negative) Urine Glucose (UA) (Negative) Urine Bacteria (None) /hpf Urine Mucus (None) /hpf 07/15/17 07/15/17 Range/Units 10:14 10:14 MCV (80.0-100.0) fL MCHC (31.0-37.0) g/dL Neutrophils # (1.3-7.7) k/uL PT 14.0 H (9.0-12.0) sec INR 1.5 H (<1.2) Chloride (98-107) mmol/L Carbon Dioxide (22-30) mmol/L BUN (7-17) mg/dL Creatinine (0.52-1.04) mg/dL Glucose (74-99) mg/dL CK-MB (CK-2) (0.0-2.4) ng/mL Troponin I (0.000-0.034) ng/mL Urine Protein 2+ H (Negative) Urine Glucose (UA) 1+ H (Negative) Urine Bacteria Rare H (None) /hpf Urine Mucus Rare H (None) /hpf Thrombosis Risk Factor Assmnt - Choose All That Apply Any of the Below Risk Factors Present?: Yes Each Factor Represents 1 point: Abnormal pulmonary function (COPD), Obesity ( BMI >25) Other Risk Factors: Yes Each Risk Factor Represents 3 Points: Age 75 years or older Other congenital or acquired thrombophilia - If yes, enter type in comment: No Thrombosis Risk Factor Assessment Total Risk Factor Score: 5 Thrombosis Risk Factor Assessment Level: High Risk Assessment and Plan Plan: -Acute hypoxic respiratory failure: Secondary to congestive heart failure exacerbation chronic diastolic dysfunction. -Atrial fibrillation presently rate controlled, subtherapeutic INR continue the same dose of Coumadin with repeat INR tomorrow depending on INR tomorrow we'll make additional regarding changing the dose of Coumadin. -History of aortic stenosis -Mildly elevated troponin secondary to hypoxemia congestive heart failure -History of COPD may have little bit of exacerbation although do not believe patient will require systemic steroids -Coronary artery disease -Gastroesophageal reflux disease -Hyperlipidemia -Hypertension CODE STATUS is DO NOT RESUSCITATE For above-mentioned chronic medical problems patient will be resumed on appropriate home medications
[2017-07-15 17:25] LABS: Glucose,Whole Blood 371 mg/dL (75-99)
[2017-07-15] MEDS ORDERED: WARFARIN 3 MG TAB PO SCH (18:00)
[2017-07-15 20:36] LABS: Glucose,Whole Blood 430 mg/dL (75-99)
[2017-07-15] MEDS: INSULIN ASPART 100 UNIT/ML 1 ML 10 ML VIAL SQ SCH (21:30)
[2017-07-15] MEDS: glipiZIDE 5 MG TAB PO SCH (21:30)
[2017-07-15] MEDS: ATORVASTATIN 20 MG TAB PO SCH (21:31)
[2017-07-15] MEDS: ASPIRIN 325 MG TAB PO SCH (21:31)
[2017-07-15] MEDS: BETAMETHASONE DIPROPIONATE 0.05% CREAM 15 GM TUBE TOPICAL SCH (21:31)
[2017-07-15] MEDS: MELATONIN 5 MG TABLET PO SCH (21:32)
[2017-07-15] MEDS: LATANOPROST 0.005% OPHTH DROPS 2.5 ML BTL BOTH EYES SCH (21:32)
[2017-07-15] MEDS: METOPROLOL TARTRATE 25 MG TAB PO SCH (21:32)
[2017-07-15 23:31] LABS: Hemoglobin A1C 8.1 % (4.0-6.0)
[2017-07-16] MEDS: HYDROcodone/APAP 7.5-325MG 1 EACH TAB PO PRN ×2 (03:53→12:01)
[2017-07-16 06:01] LABS: HGB 11.6 gm/dL (11.4-16.0); Hypochromasia Slight; MCH 30.6 pg (25.0-35.0); MCHC 30.7 g/dL (31.0-37.0); MCV 99.9 fL (80.0-100.0); Macrocytosis Slight; Platelet Count 267 k/uL (150-450); RDW 15.4 % (11.5-15.5); WBC 7.8 k/uL (3.8-10.6)
[2017-07-16 06:04] LABS: INR 1.6 (<1.2); Prothrombin Time 14.9 sec (9.0-12.0)
[2017-07-16 06:05] LABS: Glucose,Whole Blood 300 mg/dL (75-99)
[2017-07-16 06:20] LABS: Calcium 9.2 mg/dL (8.4-10.2); Potassium 4.1 mmol/L (3.5-5.1)
[2017-07-16] MEDS: INSULIN ASPART 100 UNIT/ML 1 ML 10 ML VIAL SQ SCH ×4 (06:39→21:05)
[2017-07-16] MEDS: glipiZIDE 5 MG TAB PO SCH ×2 (06:40→17:34)
[2017-07-16] MEDS: SYMBICORT 160-4.5 MCG INHALER INHALATION SCH ×2 (07:54→20:15)
[2017-07-16] MEDS: IPRATROPIUM-ALBUTEROL 3 ML NEB INHALATION SCH ×3 (07:54→20:17)
--- NOTE | 2017-07-16 09:22 | P.CRDCN ---
History of Present Illness Consult date: 07/16/17 History of present illness: This is Dr. Astudillo dictating a history. History and physicals on this 87- year-old female with history of chronic atrial fibrillation, severe aortic stenosis, diastolic congestive heart failure, hypertension and hyperlipidemia who is admitted to the hospital with increasing shortness of breath and also pedal edema. Patient denied any chest pain. Patient is also known to have mild coronary artery disease. Her chest x-ray showed evidence of for exacerbation of CHF. Patient was treated with IV Lasix. Patient diary Ryan and seemed to be feeling better. She still has mild edema. Patient wants to go home. Patient doesn't want to have any intervention regarding her aortic stenosis. Her lab showed normal electrolytes. Her creatinine has gone up today. Her troponin is slightly elevated. Patient however did not have any chest pain. Her EKG showed atrial flutters/tachycardia with a controlled ventricular response. I will suggest that we can switch to by mouth Lasix and increase activity. Patient could be transferred back to the facility when medically cleared Past Medical History Past Medical History: Atrial Fibrillation, Coronary Artery Disease (CAD), Heart Failure, COPD, Diabetes Mellitus, Eye Disorder, GERD/Reflux, Hyperlipidemia, Hypertension, Osteoarthritis (OA) Additional Past Medical History / Comment(s): NIDDM type II, murmur, hiatal hernia, bilateral glaucoma, arthritis multiple joints, urinary leakage-uses pads. History of Any Multi-Drug Resistant Organisms: None Reported Past Surgical History: Appendectomy, Cholecystectomy, Heart Catheterization, Hysterectomy, Joint Replacement, Orthopedic Surgery, Tonsillectomy, Tubal Ligation Additional Past Surgical History / Comment(s): 2006 cardiac cath-tx medically, colonoscopy/EGD, total L knee arthroplasty, R shoulder rotator cuff repair, bunions bilateral feet, bilateral cataract removal and trabeculectomy. Past Anesthesia/Blood Transfusion Reactions: No Reported Reaction Past Psychological History: Anxiety Smoking Status: Former smoker Past Alcohol Use History: None Reported Additional Past Alcohol Use History / Comment(s): Pt startes smoking in 11 and quit in 1981. Past Drug Use History: None Reported - Past Family History Father Additional Family Medical History / Comment(s): Father had "heart problems" and at 82 yrs. Mother Additional Family Medical History / Comment(s): Mother of a "bad heart" at the age of 70yrs. Medications and Allergies Home Medications Medication Instructions Recorded Confirmed Type glipiZIDE [Glucotrol] 5 mg PO AC-BID 04/26/14 07/15/17 History Betamethasone Dipropionate 1 applic TOPICAL BID 10/10/16 07/15/17 History [Diprolene AF 0.05% Cream] Melatonin 5 mg PO HS 10/10/16 07/15/17 History Metoprolol Tartrate [Lopressor] 25 mg PO BID tab 10/15/16 07/15/17 Rx ALPRAZolam [Xanax] 0.25 mg PO Q6H PRN 07/15/17 07/15/17 History Acetaminophen [Tylenol] 650 mg PO Q4H PRN 07/15/17 07/15/17 History Aspirin 325 mg PO HS 07/15/17 07/15/17 History Diltiazem HCl [Diltiazem ER] 120 mg PO DAILY 07/15/17 07/15/17 History Escitalopram [Lexapro] 5 mg PO DAILY 07/15/17 07/15/17 History Fluticasone/Vilanterol [Breo 1 puff INHALATION RT-DAILY 07/15/17 07/15/17 History Ellipta 200-25 Mcg INH] Furosemide [Lasix] 60 mg PO DAILY@0700 07/15/17 07/15/17 History Gabapentin [Neurontin] 300 mg PO DAILY 07/15/17 07/15/17 History Hydrocodone/Acetaminophen [[place] 1 tab PO Q6H PRN 07/15/17 07/15/17 History 7.5-325] Ipratropium-Albuterol Nebulize 3 ml INHALATION RT-TID 07/15/17 07/15/17 History [Duoneb 0.5 mg-3 mg/3 ml Soln] Latanoprost Ophth [Xalatan 0.005%] 1 drops BOTH EYES HS 07/15/17 07/15/17 History [place] Suspension 30 ml PO Q4H PRN 07/15/17 07/15/17 History Natural Tears 2 drops BOTH EYES Q6H PRN 07/15/17 07/15/17 History Potassium Chloride ER [K-Dur 20] 20 meq PO DAILY 07/15/17 07/15/17 History Simvastatin [Zocor] 40 mg PO HS 07/15/17 07/15/17 History Warfarin [Coumadin] 3 mg PO MOFR 07/15/17 07/15/17 History Warfarin [Coumadin] 6 mg PO SUTUWETHSA 07/15/17 07/15/17 History Allergies Allergy/AdvReac Type Severity Reaction Status Date / Time Penicillins Allergy Unknown Verified 07/15/17 11:08 Sulfa (Sulfonamide Allergy Unknown Verified 07/15/17 11:08 Antibiotics) Physical Exam Vitals: Vital Signs Temp Pulse Pulse Resp BP BP Pulse Ox 07/16/17 08:05 74 07/16/17 07:55 72 07/16/17 04:00 96.9 F L 75 20 116/67 93 L 07/16/17 00:00 97.0 F L 88 20 118/68 93 L 07/15/17 21:22 80 07/15/17 21:07 84 93 L 07/15/17 20:00 97.5 F L 96 22 122/78 92 L 07/15/17 16:37 86 07/15/17 16:27 84 07/15/17 16:00 98.3 F 97 22 145/74 91 L 07/15/17 13:52 99 24 07/15/17 12:25 99.4 F 99 24 138/81 91 L 07/15/17 11:54 97.5 F L 90 18 161/76 93 L 07/15/17 11:28 85 18 145/87 93 L 07/15/17 10:59 82 07/15/17 10:49 77 07/15/17 10:36 74 07/15/17 10:34 22 07/15/17 09:38 98.0 F 86 24 165/94 94 L Intake and Output 07/15/17 07/16/17 07/16/17 22:59 06:59 14:59 Intake Total 360 Balance 360 Intake: Oral 360 Other: # Voids 1 0 # Bowel Movements 1 Weight 87 kg GENERAL EXAM: Patient is alert and oriented and doesn't appear to be in any acute distress HEENT: Normocephalic. Normal reaction of pupils, equal size, normal range of extraocular motion. NECK: No masses, no nuchal rigidity. CHEST: No chest wall deformity. LUNGS: Equal air entry with no crackles or wheeze. HEART: S1 and S2 normal. Systolic murmur heard all over the precordium ABDOMEN: No hepatosplenomegaly, normal bowel sounds, no guarding or rigidity. SKIN: No rashes CENTRAL NERVOUS SYSTEM: No focal deficits. EXTREMITIES: Mild edema Results 07/16/17 05:31 07/16/17 05:31 Cardiac Enzymes 07/15/17 07/15/17 Range/Units 10:14 10:14 AST 21 (14-36) U/L CK-MB (CK-2) 3.1 H* (0.0-2.4) ng/mL Troponin I 0.082 H* (0.000-0.034) ng/mL Coagulation 07/15/17 07/16/17 Range/Units 10:14 05:31 PT 14.0 H 14.9 H (9.0-12.0) sec APTT 25.3 (22.0-30.0) sec CBC 07/15/17 07/16/17 Range/Units 10:14 05:31 WBC 10.4 7.8 (3.8-10.6) k/uL RBC 4.26 3.80 (3.80-5.40) m/uL Hgb 13.2 11.6 (11.4-16.0) gm/dL Hct 42.8 38.0 (34.0-46.0) % Plt Count 265 267 (150-450) k/uL Comprehensive Metabolic Panel 07/15/17 07/16/17 Range/Units 10:14 05:31 Sodium 139 137 (137-145) mmol/L Potassium 4.6 4.1 (3.5-5.1) mmol/L Chloride 97 L 93 L (98-107) mmol/L Carbon Dioxide 31 H 33 H (22-30) mmol/L BUN 26 H 41 H (7-17) mg/dL Creatinine 1.05 H 1.36 H (0.52-1.04) mg/dL Glucose 247 H 322 H (74-99) mg/dL Calcium 9.5 9.2 (8.4-10.2) mg/dL AST 21 (14-36) U/L ALT 16 (9-52) U/L Alkaline Phosphatase 91 (38-126) U/L Total Protein 7.5 (6.3-8.2) g/dL Albumin 4.0 (3.5-5.0) g/dL Current Medications Generic Name Dose Route Start Last Admin Trade Name Freq PRN Reason Stop Dose Admin Acetaminophen 650 mg 07/15/17 15:30 Tylenol Tab PO Q4H PRN Pain Hydrocodone Bitart/Acetaminophen 1 each 07/15/17 15:30 07/16/17 03:53 Tiro 7.5-325 PO 1 each Q6H PRN Administration Pain Al Hydroxide/Mg Hydroxide 30 ml 07/15/17 15:30 Maalox PO Q4H PRN Indigestion Albuterol/Ipratropium 3 ml 07/15/17 13:00 07/16/17 07:54 Duoneb 0.5 Mg-3 Mg/3 Ml Soln INHALATION 3 ml RT-TID ROBI Administration Alprazolam 0.25 mg 07/15/17 15:30 Xanax PO Q6H PRN Anxiety Aspirin 325 mg 07/15/17 21:00 07/15/17 21:31 Aspirin PO 325 mg HS ROBI Administration Atorvastatin Calcium 20 mg 07/15/17 21:00 07/15/17 21:31 Lipitor PO 20 mg HS ROBI Administration Betamethasone Dipropionate 1 applic 07/15/17 21:00 07/15/17 21:31 Diprolene Af TOPICAL 1 applic BID ROBI Administration Budesonide/Formoterol Fumarate 2 puff 07/16/17 08:00 07/16/17 07:54 Symbicort 160-4.5 Mcg Inhaler INHALATION 2 puff RT-BID ROBI Administration Diltiazem HCl 120 mg 07/16/17 09:00 Cardizem Cd PO DAILY [facility] Escitalopram Oxalate 5 mg 07/16/17 09:00 Lexapro PO DAILY [facility] Furosemide 40 mg 07/15/17 16:00 07/15/17 23:36 Lasix IV 40 mg Q8HR ROBI Administration Gabapentin 300 mg 07/16/17 09:00 Neurontin PO DAILY ROBI Glipizide 5 mg 07/15/17 20:45 07/16/17 06:40 Glucotrol PO 5 mg AC-BID ROBI Administration Insulin Aspart 0 unit 07/15/17 21:00 07/16/17 06:39 Novolog SQ 5 unit ACHS ROBI Administration Protocol Latanoprost 1 drops 07/15/17 21:00 07/15/17 21:32 Xalatan 0.005% BOTH EYES 1 drops HS ROBI Administration Melatonin 5 mg 07/15/17 21:00 07/15/17 21:32 Melatonin PO 5 mg HS ROBI Administration Metoprolol Tartrate 25 mg 07/15/17 21:00 07/15/17 21:32 Lopressor PO 25 mg BID ROBI Administration Warfarin Sodium 3 mg 07/17/17 18:00 Coumadin PO MOFR ROBI Warfarin Sodium 6 mg 07/15/17 18:00 07/15/17 17:10 Coumadin PO 6 mg SUTUWETHSA ROBI Administration Intake and Output 07/15/17 07/16/17 07/16/17 22:59 06:59 14:59 Intake Total 360 Balance 360 Intake: Oral 360 Other: # Voids 1 0 # Bowel Movements 1 Weight 87 kg 07/16/17 05:31 07/16/17 05:31 EKG Interpretations (text) Atrial flutters/tachycardia with controlled ventricular response Assessment and Plan (1) Diastolic CHF Current Visit: Yes Status: Acute Code(s): I50.30 - UNSPECIFIED DIASTOLIC ( CONGESTIVE) HEART FAILURE SNOMED Code(s): 211105544 (2) Aortic stenosis Current Visit: Yes Status: Acute Code(s): I35.0 - NONRHEUMATIC AORTIC (VALVE ) STENOSIS SNOMED Code(s): 51748031 (3) Chronic atrial fibrillation Current Visit: Yes Status: Acute Code(s): I48.2 - CHRONIC ATRIAL FIBRILLATION SNOMED Code(s): 916570994 Plan: Patient is feeling better. May switch to by mouth diuretics. Increase activity. Patient doesn't want to any intervention. She wants to go back to the facility. Patient could be transferred when medically cleared.
[2017-07-16] MEDS: BETAMETHASONE DIPROPIONATE 0.05% CREAM 15 GM TUBE TOPICAL SCH ×2 (09:56→21:05)
[2017-07-16] MEDS: FUROSEMIDE 10 MG/ML 4 ML VIAL IV SCH (09:56)
[2017-07-16] MEDS: DILTIAZEM CD 120 MG CAP.ER.24H PO SCH (09:56)
[2017-07-16] MEDS: GABAPENTIN 300 MG CAP PO SCH (09:57)
[2017-07-16] MEDS: METOPROLOL TARTRATE 25 MG TAB PO SCH ×2 (09:57→21:06)
[2017-07-16] MEDS: ESCITALOPRAM 5 MG TAB PO SCH (09:58)
[2017-07-16 11:32] LABS: Glucose,Whole Blood 409 mg/dL (75-99)
[2017-07-16] MEDS: ALPRAZolam 0.25 MG TAB PO PRN (13:31)
--- NOTE | 2017-07-16 14:08 | P.PN ---
Subjective Patient was admitted for shortness of breath was treated for CHF exacerbation patient is still short of breath requiring 4 L of falls and although there is fairly good air entry into bilateral lung blankenship patient does have a some expiratory wheezing probably coming from the left labia. Will get an pulmonology opinion regarding this. Patient will continue done inhalational steroids because of her highly elevated blood sugars and the possibility of respiratory status improving with the systemic strides is low because of which I 'm not starting her on any steroids. The regarding patient's blood sugars are started on 20 units of Lantus at nighttime. Patient has worsening kidney function hold of diuretic therapy restart her on oral Lasix starting from tomorrow recheck basic metabolic profile tomorrow. Patient appears to be in mild respiratory distress at rest. Patient is on 4 L of oxygen at this time. Constitutional: Denied any fatigue denied any fever. Cardio vascular: denied any chest pain, palpitations Gastrointestinal denied any nausea vomiting Pulmonary: As mentioned in HPI Neurologic denied any new focal deficits Objective - Vital Signs Vital signs: Vital Signs Temp 96.8 F L 07/16/17 12:00 Pulse 82 07/16/17 13:41 Resp 22 07/16/17 12:00 BP 133/65 07/16/17 12:00 Pulse Ox 93 L 07/16/17 12:00 Intake & Output 07/15/17 07/16/17 07/16/17 18:59 06:59 18:59 Intake Total 360 Balance 360 Weight 90.265 kg 87 kg Intake: Oral 360 Other: # Voids 4 0 # Bowel Movements 1 - Exam PHYSICAL EXAMINATION: GENERAL: The patient is alert and oriented x3, is in mild respiratory distress. Well developed, well nourished. HEENT: Pupils are round and equally reacting to light. EOMI. No scleral icterus. No conjunctival pallor. Normocephalic, atraumatic. No pharyngeal erythema. No thyromegaly. CARDIOVASCULAR: S1 and S2 present. There is a systolic murmur and diuretic area PULMONARY: Coarse crackles and expiratory wheezing was appreciated appears to be mostly coming from laryngeal area does have good air entry into bilateral lung blankenship ABDOMEN: Soft, nontender, nondistended, normoactive bowel sounds. No palpable organomegaly. MUSCULOSKELETAL: No joint swelling or deformity. EXTREMITIES: No cyanosis, clubbing, or pedal edema. NEUROLOGICAL: Gross neurological examination did not reveal any focal deficits. SKIN: No rashes. - Labs CBC & Chem 7: 07/16/17 05:31 07/16/17 05:31 Labs: Abnormal Lab Results - Last 24 Hours (Table) 07/15/17 07/15/17 07/15/17 Range/Units 10:14 17:02 20:27 MCHC (31.0-37.0) g/dL PT (9.0-12.0) sec INR (<1.2) Chloride (98-107) mmol/L Carbon Dioxide (22-30) mmol/L BUN (7-17) mg/dL Creatinine (0.52-1.04) mg/dL Glucose (74-99) mg/dL POC Glucose (mg/dL) 371 H 430 H (75-99) mg/dL Hemoglobin A1c 8.1 H (4.0-6.0) % 07/16/17 07/16/17 07/16/17 Range/Units 05:31 05:31 05:31 MCHC 30.7 L (31.0-37.0) g/dL PT 14.9 H (9.0-12.0) sec INR 1.6 H (<1.2) Chloride 93 L (98-107) mmol/L Carbon Dioxide 33 H (22-30) mmol/L BUN 41 H (7-17) mg/dL Creatinine 1.36 H (0.52-1.04) mg/dL Glucose 322 H (74-99) mg/dL POC Glucose (mg/dL) (75-99) mg/dL Hemoglobin A1c (4.0-6.0) % 07/16/17 07/16/17 Range/Units 06:04 11:24 MCHC (31.0-37.0) g/dL PT (9.0-12.0) sec INR (<1.2) Chloride (98-107) mmol/L Carbon Dioxide (22-30) mmol/L BUN (7-17) mg/dL Creatinine (0.52-1.04) mg/dL Glucose (74-99) mg/dL POC Glucose (mg/dL) 300 H 409 H (75-99) mg/dL Hemoglobin A1c (4.0-6.0) % Microbiology - Last 24 Hours (Table) 07/15/17 09:44 Group A Strep Throat Culture - Preliminary Throat Assessment and Plan Plan: -Acute hypoxic respiratory failure: Secondary to congestive heart failure exacerbation chronic diastolic dysfunction. Patient is on oral Lasix patient can he is to be significantly hypoxic will consult pulmonary -Atrial fibrillation presently rate controlled, subtherapeutic INR continue the same dose of Coumadin with repeat INR tomorrow depending on INR tomorrow we'll make additional regarding changing the dose of Coumadin. INR today is 1.6 will continue the same dose of Coumadin today -History of aortic stenosis -Mildly elevated troponin secondary to hypoxemia congestive heart failure -History of COPD may have little bit of exacerbation although do not believe patient will require systemic steroids -Coronary artery disease -Gastroesophageal reflux disease -Hyperlipidemia -Hypertension CODE STATUS is DO NOT RESUSCITATE For above-mentioned chronic medical problems patient will be resumed on appropriate home medications
[2017-07-16 16:39] LABS: Glucose,Whole Blood 214 mg/dL (75-99)
[2017-07-16] MEDS: WARFARIN 3 MG TAB PO SCH (17:34)
[2017-07-16 21:00] LABS: Glucose,Whole Blood 397 mg/dL (75-99)
[2017-07-16] MEDS: ASPIRIN 325 MG TAB PO SCH (21:05)
[2017-07-16] MEDS: ATORVASTATIN 20 MG TAB PO SCH (21:05)
[2017-07-16] MEDS: LATANOPROST 0.005% OPHTH DROPS 2.5 ML BTL BOTH EYES SCH (21:06)
[2017-07-16] MEDS: MELATONIN 5 MG TABLET PO SCH (21:06)
[2017-07-16] MEDS: INSULIN DETEMIR 100 UNIT/ML 10 ML VIAL SQ SCH (21:08)
[2017-07-17 06:03] LABS: Glucose,Whole Blood 157 mg/dL (75-99)
[2017-07-17 06:03] LABS: INR 2.3 (<1.2); Prothrombin Time 20.8 sec (9.0-12.0)
[2017-07-17 06:07] LABS: Calcium 9.2 mg/dL (8.4-10.2); Potassium 4.2 mmol/L (3.5-5.1)
[2017-07-17] MEDS: INSULIN ASPART 100 UNIT/ML 1 ML 10 ML VIAL SQ SCH ×4 (06:30→21:46)
[2017-07-17] MEDS: FUROSEMIDE 40 MG TAB PO SCH (06:31)
[2017-07-17] MEDS: glipiZIDE 5 MG TAB PO SCH ×2 (06:31→17:11)
[2017-07-17] MEDS: DILTIAZEM CD 120 MG CAP.ER.24H PO SCH (08:21)
[2017-07-17] MEDS: METOPROLOL TARTRATE 25 MG TAB PO SCH ×2 (08:21→21:55)
[2017-07-17] MEDS: BETAMETHASONE DIPROPIONATE 0.05% CREAM 15 GM TUBE TOPICAL SCH ×2 (08:21→22:00)
[2017-07-17] MEDS: GABAPENTIN 300 MG CAP PO SCH (08:22)
[2017-07-17] MEDS: ESCITALOPRAM 5 MG TAB PO SCH (08:22)
[2017-07-17] MEDS: ALPRAZolam 0.25 MG TAB PO PRN ×3 (08:23→22:17)
[2017-07-17] MEDS: SYMBICORT 160-4.5 MCG INHALER INHALATION SCH ×2 (08:41→19:00)
[2017-07-17] MEDS: IPRATROPIUM-ALBUTEROL 3 ML NEB INHALATION SCH ×3 (08:41→19:07)
[2017-07-17 12:00] LABS: Glucose,Whole Blood 195 mg/dL (75-99)
--- NOTE | 2017-07-17 12:21 | P.PN ---
Subjective Patient was admitted for shortness of breath was treated for CHF exacerbation patient is still short of breath requiring 4 L of falls and although there is fairly good air entry into bilateral lung blankenship patient does have a some expiratory wheezing probably coming from the left labia. Will get an pulmonology opinion regarding this. Patient will continue done inhalational steroids because of her highly elevated blood sugars and the possibility of respiratory status improving with the systemic strides is low because of which I 'm not starting her on any steroids. The regarding patient's blood sugars are started on 20 units of Lantus at nighttime. Patient has worsening kidney function hold of diuretic therapy restart her on oral Lasix starting from tomorrow recheck basic metabolic profile tomorrow. Patient appears to be in mild respiratory distress at rest. Patient is on 4 L of oxygen at this time. 07/17/2017 Patient is quite lethargic today and remains on 4 L of oxygen. Was evaluated by pulmonology patient may have COPD. Started on doxy for bronchitis Constitutional: Denied any fatigue denied any fever. Cardio vascular: denied any chest pain, palpitations Gastrointestinal denied any nausea vomiting Pulmonary: As mentioned in HPI Neurologic denied any new focal deficits Objective - Vital Signs Vital signs: Vital Signs Temp 97.2 F L 07/17/17 08:00 Pulse 77 07/17/17 10:51 Resp 18 07/17/17 10:51 BP 113/64 07/17/17 08:00 Pulse Ox 92 L 07/17/17 08:45 Intake & Output 07/16/17 07/17/17 07/17/17 18:59 06:59 18:59 Intake Total 720 20 480 Output Total 325 Balance 395 20 480 Weight 87.8 kg Intake: IV 20 0.9 20 Oral 720 480 Output: Urine 325 Other: Voiding Method Bedside Commode Bedside Commode Diaper Diaper Incontinent Incontinent # Voids 1 1 - Exam PHYSICAL EXAMINATION: GENERAL: The patient is alert and oriented x3, is in mild respiratory distress. Well developed, well nourished. HEENT: Pupils are round and equally reacting to light. EOMI. No scleral icterus. No conjunctival pallor. Normocephalic, atraumatic. No pharyngeal erythema. No thyromegaly. CARDIOVASCULAR: S1 and S2 present. There is a systolic murmur and diuretic area PULMONARY: Coarse crackles and expiratory wheezing was appreciated appears to be mostly coming from laryngeal area does have good air entry into bilateral lung blankenship ABDOMEN: Soft, nontender, nondistended, normoactive bowel sounds. No palpable organomegaly. MUSCULOSKELETAL: No joint swelling or deformity. EXTREMITIES: No cyanosis, clubbing, or pedal edema. NEUROLOGICAL: Gross neurological examination did not reveal any focal deficits. SKIN: No rashes. - Labs CBC & Chem 7: 07/16/17 05:31 07/17/17 05:38 Labs: Abnormal Lab Results - Last 24 Hours (Table) 07/16/17 07/16/17 07/17/17 Range/Units 16:25 20:59 05:38 PT 20.8 H (9.0-12.0) sec INR 2.3 H (<1.2) Chloride (98-107) mmol/L Carbon Dioxide (22-30) mmol/L BUN (7-17) mg/dL Creatinine (0.52-1.04) mg/dL Glucose (74-99) mg/dL POC Glucose (mg/dL) 214 H 397 H (75-99) mg/dL 07/17/17 07/17/17 07/17/17 Range/Units 05:38 06:02 11:53 PT (9.0-12.0) sec INR (<1.2) Chloride 94 L (98-107) mmol/L Carbon Dioxide 34 H (22-30) mmol/L BUN 50 H (7-17) mg/dL Creatinine 1.45 H (0.52-1.04) mg/dL Glucose 191 H (74-99) mg/dL POC Glucose (mg/dL) 157 H 195 H (75-99) mg/dL Microbiology - Last 24 Hours (Table) 07/15/17 09:44 Group A Strep Throat Culture - Final Throat Assessment and Plan Plan: -Acute hypoxic respiratory failure: Secondary to congestive heart failure exacerbation chronic diastolic dysfunction. Patient is on oral Lasix patient can he is to be significantly hypoxic will consult pulmonary for to COPD with acute exacerbation patient will be continued on inhalational steroids patient was started on segment will monitor her today possibly of discharge tomorrow repeat a chest x-ray today with concerns of fluid retention again -Atrial fibrillation presently rate controlled, subtherapeutic INR continue the same dose of Coumadin with repeat INR tomorrow depending on INR tomorrow we'll make additional regarding changing the dose of Coumadin. INR today is 1.6 will continue the same dose of Coumadin today -History of aortic stenosis -Mildly elevated troponin secondary to hypoxemia congestive heart failure -History of COPD may have little bit of exacerbation although do not believe patient will require systemic steroids -Coronary artery disease -Gastroesophageal reflux disease -Hyperlipidemia -Hypertension CODE STATUS is DO NOT RESUSCITATE For above-mentioned chronic medical problems patient will be resumed on appropriate home medications
--- NOTE | 2017-07-17 12:48 | XR ---
EXAMINATION TYPE: XR chest 1V DATE OF EXAM: 07/17/2017 COMPARISON: 07/15/2017 HISTORY: Difficulty breathing TECHNIQUE: Single frontal view of the chest is obtained. FINDINGS: Heart is enlarged and there is a persistent interstitial pattern with bibasilar subsegment al consolidation small effusion. Diffuse osteopenia and arthropathy of the shoulders noted. IMPRESSION: 1. Bilateral infiltrate and small effusion. Findings suggest chronic interstitial lung disease. Under lying venous congestion not excluded.
[2017-07-17 14:25] VITALS: BMI 31.2
--- NOTE | 2017-07-17 14:36 | P.CNPUL ---
History of Present Illness Consult date: 07/17/17 Requesting physician: Patricia Becker Reason for consult: dyspnea, abnormal CXR/CT Chief complaint: Dyspnea, increased peripheral lower leg edema History of present illness: Giovanna is a 87-year-old white female patient of Dr. Neville who presented to the emergency department on 07/15/2017 at 09 37 with complaints of increasing shortness of breath, increasing lower extremity edema, and hypoxia. She denied any fever, chills, chest pain or palpitations. Denied any nausea vomiting or diarrhea. Her past medical history is positive for diastolic heart failure, chronic atrial fibrillation, coronary artery disease, diabetes mellitus type 2, COPD, hyperlipidemia, hypertension, and severe aortic stenosis. Chest x-ray from 07/15/2017 showed cardiomegaly, vascular congestion, pulmonary edema and bilateral small pleural effusions. EKG showed atrial fibrillation with PVCs and left anterior fascicular block, with a rate of 91 BPM. Patient is on warfarin for long-term anticoagulation, she is on Cardizem CD for rate control. She was diuresed with IV Lasix, which was switched to oral Lasix. She was given IV Solu-Medrol, she was started on doxycycline, nebulized treatments and Symbicort for evidence of wheezing and rhonchi consistent with COPD exacerbation. Review of Systems All systems: negative Constitutional: Denies chills, Denies fever Eyes: denies blurred vision, denies pain Ears, nose, mouth and throat: Denies headache, Denies sore throat Cardiovascular: Denies chest pain, Denies shortness of breath Respiratory: Denies cough Gastrointestinal: Denies abdominal pain, Denies diarrhea, Denies nausea, Denies vomiting Genitourinary: Denies dysuria, Denies hematuria Musculoskeletal: Denies myalgias Integumentary: Denies pruritus, Denies rash Neurological: Denies numbness, Denies weakness Psychiatric: Denies anxiety, Denies depression Endocrine: Denies fatigue, Denies weight change Past Medical History Past Medical History: Atrial Fibrillation, Coronary Artery Disease (CAD), Heart Failure, COPD, Diabetes Mellitus, Eye Disorder, GERD/Reflux, Hyperlipidemia, Hypertension, Osteoarthritis (OA) Additional Past Medical History / Comment(s): NIDDM type II, murmur, hiatal hernia, bilateral glaucoma, arthritis multiple joints, urinary leakage-uses pads. History of Any Multi-Drug Resistant Organisms: None Reported Past Surgical History: Appendectomy, Cholecystectomy, Heart Catheterization, Hysterectomy, Joint Replacement, Orthopedic Surgery, Tonsillectomy, Tubal Ligation Additional Past Surgical History / Comment(s): 2006 cardiac cath-tx medically, colonoscopy/EGD, total L knee arthroplasty, R shoulder rotator cuff repair, bunions bilateral feet, bilateral cataract removal and trabeculectomy. Past Anesthesia/Blood Transfusion Reactions: No Reported Reaction Past Psychological History: Anxiety Smoking Status: Former smoker Past Alcohol Use History: None Reported Additional Past Alcohol Use History / Comment(s): Pt startes smoking in 11 and quit in 1981. Past Drug Use History: None Reported - Past Family History Father Additional Family Medical History / Comment(s): Father had "heart problems" and at 82 yrs. Mother Additional Family Medical History / Comment(s): Mother of a "bad heart" at the age of 70yrs. Medications and Allergies Home Medications Medication Instructions Recorded Confirmed Type glipiZIDE [Glucotrol] 5 mg PO AC-BID 04/26/14 07/15/17 History Betamethasone Dipropionate 1 applic TOPICAL BID 10/10/16 07/15/17 History [Diprolene AF 0.05% Cream] Melatonin 5 mg PO HS 10/10/16 07/15/17 History Metoprolol Tartrate [Lopressor] 25 mg PO BID tab 10/15/16 07/15/17 Rx ALPRAZolam [Xanax] 0.25 mg PO Q6H PRN 07/15/17 07/15/17 History Acetaminophen [Tylenol] 650 mg PO Q4H PRN 07/15/17 07/15/17 History Aspirin 325 mg PO HS 07/15/17 07/15/17 History Diltiazem HCl [Diltiazem ER] 120 mg PO DAILY 07/15/17 07/15/17 History Escitalopram [Lexapro] 5 mg PO DAILY 07/15/17 07/15/17 History Fluticasone/Vilanterol [Breo 1 puff INHALATION RT-DAILY 07/15/17 07/15/17 History Ellipta 200-25 Mcg INH] Furosemide [Lasix] 60 mg PO DAILY@0700 07/15/17 07/15/17 History Gabapentin [Neurontin] 300 mg PO DAILY 07/15/17 07/15/17 History Hydrocodone/Acetaminophen [[place] 1 tab PO Q6H PRN 07/15/17 07/15/17 History 7.5-325] Ipratropium-Albuterol Nebulize 3 ml INHALATION RT-TID 07/15/17 07/15/17 History [Duoneb 0.5 mg-3 mg/3 ml Soln] Latanoprost Ophth [Xalatan 0.005%] 1 drops BOTH EYES HS 07/15/17 07/15/17 History [place] Suspension 30 ml PO Q4H PRN 07/15/17 07/15/17 History Natural Tears 2 drops BOTH EYES Q6H PRN 07/15/17 07/15/17 History Potassium Chloride ER [K-Dur 20] 20 meq PO DAILY 07/15/17 07/15/17 History Simvastatin [Zocor] 40 mg PO HS 07/15/17 07/15/17 History Warfarin [Coumadin] 3 mg PO MOFR 07/15/17 07/15/17 History Warfarin [Coumadin] 6 mg PO SUTUWETHSA 07/15/17 07/15/17 History Allergies Allergy/AdvReac Type Severity Reaction Status Date / Time Penicillins Allergy Unknown Verified 07/15/17 11:08 Sulfa (Sulfonamide Allergy Unknown Verified 07/15/17 11:08 Antibiotics) Physical Exam Vitals: Vital Signs Temp Pulse Pulse Resp BP Pulse Ox 07/17/17 10:51 77 18 07/17/17 10:41 68 18 07/17/17 08:55 88 16 07/17/17 08:45 84 16 92 L 07/17/17 08:00 97.2 F L 83 18 113/64 92 L 07/17/17 04:00 97.3 F L 70 18 144/65 96 07/17/17 00:00 97 F L 76 18 135/81 97 07/16/17 20:28 92 07/16/17 20:17 93 93 L 07/16/17 20:00 97.8 F 94 18 132/68 91 L 07/16/17 16:00 96.7 F L 83 20 97/52 91 L Intake and Output 07/16/17 07/17/17 07/17/17 22:59 06:59 14:59 Intake Total 10 10 480 Balance 10 10 480 Intake: IV 10 10 0.9 10 10 Oral 480 Other: Voiding Method Bedside Commode Bedside Commode Bedside Commode Diaper Diaper Diaper Incontinent Incontinent Incontinent # Voids 1 1 2 Weight 87.8 kg GENERAL EXAM: Alert, pleasant, 87-year-old obese elderly white female, comfortable in no apparent distress. HEAD: Normocephalic/atraumatic. EYES: Normal reaction of pupils, equal size. Conjunctiva pink, sclera white. NOSE: Clear with pink turbinates. THROAT: No erythema or exudates. NECK: No masses, no JVD, no thyroid enlargement, no adenopathy. CHEST: No chest wall deformity. Symmetrical expansion. LUNGS: Equal air entry with scattered wheezes, and rhonchi throughout the lung blankenship CVS: Irregular rate and rhythm, normal S1 and S2, no gallops, there is a systolic murmur auscultated throughout the precordium, loudest at the right sternal border, no rubs ABDOMEN: Soft, nontender. No hepatosplenomegaly, normal bowel sounds, no guarding or rigidity. EXTREMITIES: No clubbing, no cyanosis, 2+ pulses and upper and lower extremities. There is 2+ bilateral lower extremity edema, and cellulitis present MUSCULOSKELETAL: Muscle strength and tone normal. SPINE: No scoliosis or deformity SKIN: No rashes CENTRAL NERVOUS SYSTEM: Alert and oriented -3. No focal deficits, tone is normal in all 4 extremities. PSYCHIATRIC: Alert and oriented -3. Appropriate affect. Intact judgment and insight. Results - Laboratory Findings CBC and BMP: 07/16/17 05:31 07/17/17 05:38 PT/INR, D-dimer PT 20.8 sec (9.0-12.0) H 07/17/17 05:38 INR 2.3 (<1.2) H 07/17/17 05:38 Abnormal lab findings: Abnormal Labs 07/15/17 07/15/17 07/15/17 10:14 10:14 10:14 MCV 100.7 H MCHC 30.8 L Neutrophils # 7.9 H PT INR Chloride 97 L Carbon Dioxide 31 H BUN 26 H Creatinine 1.05 H Glucose 247 H POC Glucose (mg/dL) Hemoglobin A1c CK-MB (CK-2) 3.1 H* Troponin I 0.082 H* Urine Protein Urine Glucose (UA) Urine Bacteria Urine Mucus 07/15/17 07/15/17 07/15/17 10:14 10:14 10:14 MCV MCHC Neutrophils # PT 14.0 H INR 1.5 H Chloride Carbon Dioxide BUN Creatinine Glucose POC Glucose (mg/dL) Hemoglobin A1c 8.1 H CK-MB (CK-2) Troponin I Urine Protein 2+ H Urine Glucose (UA) 1+ H Urine Bacteria Rare H Urine Mucus Rare H 07/15/17 07/15/17 07/16/17 17:02 20:27 05:31 MCV MCHC 30.7 L Neutrophils # PT INR Chloride Carbon Dioxide BUN Creatinine Glucose POC Glucose (mg/dL) 371 H 430 H Hemoglobin A1c CK-MB (CK-2) Troponin I Urine Protein Urine Glucose (UA) Urine Bacteria Urine Mucus 07/16/17 07/16/17 07/16/17 05:31 05:31 06:04 MCV MCHC Neutrophils # PT 14.9 H INR 1.6 H Chloride 93 L Carbon Dioxide 33 H BUN 41 H Creatinine 1.36 H Glucose 322 H POC Glucose (mg/dL) 300 H Hemoglobin A1c CK-MB (CK-2) Troponin I Urine Protein Urine Glucose (UA) Urine Bacteria Urine Mucus 07/16/17 07/16/17 07/16/17 11:24 16:25 20:59 MCV MCHC Neutrophils # PT INR Chloride Carbon Dioxide BUN Creatinine Glucose POC Glucose (mg/dL) 409 H 214 H 397 H Hemoglobin A1c CK-MB (CK-2) Troponin I Urine Protein Urine Glucose (UA) Urine Bacteria Urine Mucus 07/17/17 07/17/17 07/17/17 05:38 05:38 06:02 MCV MCHC Neutrophils # PT 20.8 H INR 2.3 H Chloride 94 L Carbon Dioxide 34 H BUN 50 H Creatinine 1.45 H Glucose 191 H POC Glucose (mg/dL) 157 H Hemoglobin A1c CK-MB (CK-2) Troponin I Urine Protein Urine Glucose (UA) Urine Bacteria Urine Mucus 07/17/17 11:53 MCV MCHC Neutrophils # PT INR Chloride Carbon Dioxide BUN Creatinine Glucose POC Glucose (mg/dL) 195 H Hemoglobin A1c CK-MB (CK-2) Troponin I Urine Protein Urine Glucose (UA) Urine Bacteria Urine Mucus - Diagnostic Findings Chest x-ray: report reviewed Additional studies: Twelve-lead EKG reviewed Assessment and Plan Plan: Assessment: #1. Acute hypoxic respiratory failure secondary to acute diastolic congestive heart failure. EF on the 2-D echo from 10/11/2016 is 50-55% #2. Severe aortic stenosis as evidenced from that 2-D echo from 10/11/2016 with peak mean gradient across the aortic valve is 68.29 mmHg and severe concentric LVH #3. Chronic persistent atrial fibrillation, on warfarin for long-term anticoagulation. On digoxin and Cardizem CD for rate control #4. History of COPD with a mild exacerbation #5. History of nicotine dependence, in remission, quit in 1981, carries a 21- pack-year smoking history #6. Acute on chronic kidney disease, CKD stage III #7. Hyperlipidemia, hypertension #8. Coronary artery disease #9. Diabetes mellitus #10. Osteoarthritis #11. Glaucoma #12. Hiatal hernia, GERD #13. Anxiety Plan: Diuretics, anticoagulation and rate control medications per cardiology recommendations. Continue Symbicort, we will add oral prednisone at 40 mg by mouth daily, and agree with doxycycline for mild COPD exacerbation. We'll continue to follow I performed a history & physical examination of the patient and discussed their management with my nurse practitioner, Monserrat Gibbons. I reviewed the nurse practitioner's note and agree with the documented findings and plan of care. Lung sounds are positive for diffuse wheezes and rhonchi throughout the lung blankenship. The findings and the impression was discussed with the patient. I attest to the documentation by the nurse practitioner. Time with Patient: Greater than 30
--- NOTE | 2017-07-17 15:44 | P.PN ---
Subjective Progress Note Date: 07/17/17 This 87-year-old female with history of chronic atrial fibrillation, severe aortic stenosis, diastolic congestive heart failure, hypertension, diabetes, COPD, and hyperlipidemia who is admitted to the hospital with increasing shortness of breath and also pedal edema. Patient denied any chest pain. Patient is also known to have mild coronary artery disease. Her chest x-ray showed evidence of for exacerbation of CHF. Patient was treated with IV Lasix. Patient was seen and examined today, much more wheezy than yesterday. She is eager to go back to the long-term however we will continue monitoring her for another 24 hours. A pulmonary consultation has also been requested Objective - Vital Signs Vital signs: Vital Signs Temp 97.2 F L 07/17/17 08:00 Pulse 77 07/17/17 10:51 Resp 18 07/17/17 10:51 BP 113/64 07/17/17 08:00 Pulse Ox 92 L 07/17/17 08:45 Intake & Output 07/16/17 07/17/17 07/17/17 18:59 06:59 18:59 Intake Total 720 20 480 Output Total 325 Balance 395 20 480 Weight 87.8 kg 87.8 kg Intake: IV 20 0.9 20 Oral 720 480 Output: Urine 325 Other: Voiding Method Bedside Commode Bedside Commode Diaper Diaper Incontinent Incontinent # Voids 1 1 2 - Exam GENERAL EXAM: Patient is alert and oriented and doesn't appear to be in any acute distress HEENT: Normocephalic. Normal reaction of pupils, equal size, normal range of extraocular motion. NECK: No masses, no nuchal rigidity. CHEST: No chest wall deformity. LUNGS: Scattered coarse wheezing throughout. HEART: S1 and S2 normal. Systolic murmur heard all over the precordium ABDOMEN: No hepatosplenomegaly, normal bowel sounds, no guarding or rigidity. SKIN: No rashes CENTRAL NERVOUS SYSTEM: No focal deficits. EXTREMITIES: Mild edema - Labs CBC & Chem 7: 07/16/17 05:31 07/17/17 05:38 Labs: Abnormal Lab Results - Last 24 Hours (Table) 07/16/17 07/16/17 07/17/17 Range/Units 16:25 20:59 05:38 PT 20.8 H (9.0-12.0) sec INR 2.3 H (<1.2) Chloride (98-107) mmol/L Carbon Dioxide (22-30) mmol/L BUN (7-17) mg/dL Creatinine (0.52-1.04) mg/dL Glucose (74-99) mg/dL POC Glucose (mg/dL) 214 H 397 H (75-99) mg/dL 07/17/17 07/17/17 07/17/17 Range/Units 05:38 06:02 11:53 PT (9.0-12.0) sec INR (<1.2) Chloride 94 L (98-107) mmol/L Carbon Dioxide 34 H (22-30) mmol/L BUN 50 H (7-17) mg/dL Creatinine 1.45 H (0.52-1.04) mg/dL Glucose 191 H (74-99) mg/dL POC Glucose (mg/dL) 157 H 195 H (75-99) mg/dL Microbiology - Last 24 Hours (Table) 07/15/17 09:44 Group A Strep Throat Culture - Final Throat Assessment and Plan Plan: Assessment and plan #1 acute respiratory failure secondary to diastolic congestive heart failure and exacerbation of COPD #2 chronic persistent atrial fibrillation #3 aortic stenosis #4 COPD #5 hypertension #6 hyperlipidemia Plan Repeat chest x-ray reveals bilateral infiltrate and small effusion, suggesting also interstitial lung disease. From cardiology's perspective, we will recommend to continue the patient on her current medications. She may be able to be transferred back to [facility] once cleared by her primary. We will follow her with you now on an as-needed basis only, please don't hesitate to call with any questions. DNP note has been reviewed, I agree with a documented findings and plan of care. Patient was seen and examined.
[2017-07-17] MEDS: DOXYCYCLINE 50 MG CAP PO SCH ×2 (16:17→21:59)
[2017-07-17] MEDS: predniSONE 20 MG TAB PO SCH (16:18)
[2017-07-17] MEDS: WARFARIN 3 MG TAB PO SCH (17:11)
[2017-07-17 17:17] LABS: Glucose,Whole Blood 195 mg/dL (75-99)
[2017-07-17] MEDS ORDERED: WARFARIN 3 MG TAB PO SCH (18:00)
[2017-07-17 20:51] LABS: Glucose,Whole Blood 308 mg/dL (75-99)
[2017-07-17] MEDS: INSULIN DETEMIR 100 UNIT/ML 10 ML VIAL SQ SCH (21:49)
[2017-07-17] MEDS: ASPIRIN 325 MG TAB PO SCH (21:55)
[2017-07-17] MEDS: MELATONIN 5 MG TABLET PO SCH (21:55)
[2017-07-17] MEDS: ATORVASTATIN 20 MG TAB PO SCH (21:59)
[2017-07-17] MEDS: LATANOPROST 0.005% OPHTH DROPS 2.5 ML BTL BOTH EYES SCH (22:00)
[2017-07-17] MEDS: HYDROcodone/APAP 7.5-325MG 1 EACH TAB PO PRN (22:12)
[2017-07-18 06:20] LABS: Glucose,Whole Blood 244 mg/dL (75-99)
[2017-07-18 06:33] LABS: HCT 39.9 % (34.0-46.0); HGB 12.1 gm/dL (11.4-16.0); Hypochromasia Marked; MCH 31.1 pg (25.0-35.0); MCHC 30.5 g/dL (31.0-37.0); MCV 102.1 fL (80.0-100.0); Macrocytosis Slight; Mean Platelet Volume 7.6; Platelet Count 303 k/uL (150-450); WBC 7.6 k/uL (3.8-10.6)
[2017-07-18 06:34] LABS: INR 3.1 (<1.2); Prothrombin Time 27.4 sec (9.0-12.0)
[2017-07-18 06:40] LABS: Potassium 4.6 mmol/L (3.5-5.1)
[2017-07-18] MEDS: FUROSEMIDE 40 MG TAB PO SCH (06:50)
[2017-07-18] MEDS: glipiZIDE 5 MG TAB PO SCH ×2 (06:50→17:13)
[2017-07-18] MEDS: INSULIN ASPART 100 UNIT/ML 1 ML 10 ML VIAL SQ SCH ×4 (06:50→21:17)
[2017-07-18] MEDS: BETAMETHASONE DIPROPIONATE 0.05% CREAM 15 GM TUBE TOPICAL SCH ×2 (08:34→21:17)
[2017-07-18] MEDS: predniSONE 20 MG TAB PO SCH (08:34)
[2017-07-18] MEDS: ESCITALOPRAM 5 MG TAB PO SCH (08:35)
[2017-07-18] MEDS: DILTIAZEM CD 120 MG CAP.ER.24H PO SCH (08:35)
[2017-07-18] MEDS: DOXYCYCLINE 50 MG CAP PO SCH ×2 (08:35→21:17)
[2017-07-18] MEDS: METOPROLOL TARTRATE 25 MG TAB PO SCH ×2 (08:36→21:17)
[2017-07-18] MEDS: GABAPENTIN 300 MG CAP PO SCH (08:36)
[2017-07-18] MEDS: IPRATROPIUM-ALBUTEROL 3 ML NEB INHALATION SCH ×3 (09:13→20:39)
[2017-07-18] MEDS: SYMBICORT 160-4.5 MCG INHALER INHALATION SCH ×2 (09:13→20:39)
--- NOTE | 2017-07-18 11:26 | P.PN ---
Subjective Progress Note Date: 07/18/17 Principal diagnosis: Shortness of breath Progress note dated 07/18/2017 This is an 87-year-old female who presented with significant hypoxemic respiratory failure secondary to diastolic CHF. She had an ejection fraction of 50-55% on 2-D echo. She also suffers from severe aortic stenosis with significant gradient across the aortic valve chronic and persistent atrial fibrillation COPD chronic nicotine dependence acute on chronic kidney disease hyperlipidemia CAD diabetes osteoarthritis glaucoma hiatal hernia and GERD and anxiety. Yesterday she looked pretty short of breath but today she looks much better. Feeling much better. She is a no code patient. She is a loud murmur of aortic stenosis. Chest x-ray showed evidence of heart failure. Clinically she is improved. Her N-terminal proBNP also, was quite elevated. Objective - Vital Signs Vital signs: Vital Signs Temp 97.0 F L 07/18/17 08:00 Pulse 68 07/18/17 09:34 Resp 18 07/18/17 08:00 BP 165/69 07/18/17 08:00 Pulse Ox 96 07/18/17 08:00 Intake & Output 07/17/17 07/18/17 07/18/17 18:59 06:59 18:59 Intake Total 1440 Output Total 1100 Balance 1440 -1100 Weight 87.8 kg 87.9 kg Intake: Oral 1440 Output: Urine 1100 Other: Voiding Method Bedside Commode Bedside Commode Bedside Commode Diaper Diaper Diaper Incontinent Incontinent Incontinent # Voids 2 2 1 - Exam No acute distress, oriented 3. HEENT examination is grossly unremarkable. Mucous membranes are moist. No oral lesions. Neck supple. Full range of motion. No adenopathy thyromegaly or neck vein distention. Cardiovascular examination reveals a irregular rhythm and rate. The patient's clearly in atrial fibrillation. S1-S2 normal. There is a grade 4/6 systolic ejection murmur consistent with aortic stenosis. Lungs reveal clear breath sounds. Her sounds are equal bilaterally. No adventitious lung sounds including wheezes rhonchi or crackles. Abdomen soft bowel sounds are heard. No masses or tenderness. Extremities are intact. There is significant bilateral lower extremity pitting edema. +1 are +2. There is also some lower extremity erythema and hyperemia. Skin is without rash or lesion. Neurologic examination is brief but nonfocal. - Labs CBC & Chem 7: 07/18/17 06:09 07/18/17 06:09 Labs: Abnormal Lab Results - Last 24 Hours (Table) 07/17/17 07/17/17 07/17/17 Range/Units 11:53 16:45 20:49 MCV (80.0-100.0) fL MCHC (31.0-37.0) g/dL PT (9.0-12.0) sec INR (<1.2) Chloride (98-107) mmol/L Carbon Dioxide (22-30) mmol/L BUN (7-17) mg/dL Creatinine (0.52-1.04) mg/dL Glucose (74-99) mg/dL POC Glucose (mg/dL) 195 H 195 H 308 H (75-99) mg/dL 07/18/17 07/18/17 07/18/17 Range/Units 06:09 06:09 06:09 MCV 102.1 H (80.0-100.0) fL MCHC 30.5 L (31.0-37.0) g/dL PT 27.4 H (9.0-12.0) sec INR 3.1 H (<1.2) Chloride 95 L (98-107) mmol/L Carbon Dioxide 35 H (22-30) mmol/L BUN 44 H (7-17) mg/dL Creatinine 1.18 H (0.52-1.04) mg/dL Glucose 256 H (74-99) mg/dL POC Glucose (mg/dL) (75-99) mg/dL 07/18/17 Range/Units 06:15 MCV (80.0-100.0) fL MCHC (31.0-37.0) g/dL PT (9.0-12.0) sec INR (<1.2) Chloride (98-107) mmol/L Carbon Dioxide (22-30) mmol/L BUN (7-17) mg/dL Creatinine (0.52-1.04) mg/dL Glucose (74-99) mg/dL POC Glucose (mg/dL) 244 H (75-99) mg/dL Microbiology - Last 24 Hours (Table) 07/15/17 09:44 Group A Strep Throat Culture - Final Throat Assessment and Plan Assessment: Assessment Hypoxemic respiratory failure failure secondary to acute diastolic congestive heart failure. Severe aortic stenosis Persistent and chronic atrial fibrillation History of mild COPD History of nicotine dependence Acute on chronic kidney disease, stage III Hypertension Hyperlipidemia CAD Diabetes mellitus Osteoarthritis Glaucoma Hiatal hernia/GERD Anxiety Plan: Plan dated 07/18/2017 The patient's medications are currently appropriate. She is on anticoagulation diuretics and cardiac medications as per cardiology. The patient continues on Symbicort. Steroids can be reduced. We'll continue to follow. Prognosis is guarded. Time with Patient: Less than 30
[2017-07-18] MEDS ORDERED: predniSONE 20 MG TAB PO SCH (11:27)
[2017-07-18 11:28] LABS: Glucose,Whole Blood 252 mg/dL (75-99)
--- NOTE | 2017-07-18 14:27 | P.PN ---
Subjective Progress Note Date: 07/18/17 This 87-year-old female with history of chronic atrial fibrillation, severe aortic stenosis, diastolic congestive heart failure, hypertension, diabetes, COPD, and hyperlipidemia who is admitted to the hospital with increasing shortness of breath and also pedal edema. Patient denied any chest pain. Patient is also known to have mild coronary artery disease. Her chest x-ray showed evidence of for exacerbation of CHF. Patient was treated with IV Lasix. Patient was seen and examined today, much more wheezy than yesterday. She is eager to go back to the assisted however we will continue monitoring her for another 24 hours. A pulmonary consultation has also been requested 07/18/2017 seen and examined this morning, feeling much better overall today, sitting up at bedside. Currently on by mouth Lasix. Blood pressure 132/70 with a heart rate in the 80s, 92% on 3 L of oxygen. INR 3.1. Objective - Vital Signs Vital signs: Vital Signs Temp 97.6 F 07/18/17 12:00 Pulse 84 07/18/17 13:53 Resp 18 07/18/17 12:00 BP 132/75 07/18/17 12:00 Pulse Ox 92 L 07/18/17 12:00 Intake & Output 07/17/17 07/18/17 07/18/17 18:59 06:59 18:59 Intake Total 1440 360 Output Total 1100 Balance 1440 -1100 360 Weight 87.8 kg 87.9 kg Intake: Oral 1440 360 Output: Urine 1100 Other: Voiding Method Bedside Commode Bedside Commode Bedside Commode Diaper Diaper Diaper Incontinent Incontinent Incontinent # Voids 2 2 1 # Bowel Movements 1 - Exam GENERAL EXAM: Patient is alert and oriented and doesn't appear to be in any acute distress HEENT: Normocephalic. Normal reaction of pupils, equal size, normal range of extraocular motion. NECK: No masses, no nuchal rigidity. CHEST: No chest wall deformity. LUNGS: Scattered coarse wheezing throughout. HEART: S1 and S2 normal. Systolic murmur heard all over the precordium ABDOMEN: No hepatosplenomegaly, normal bowel sounds, no guarding or rigidity. SKIN: No rashes CENTRAL NERVOUS SYSTEM: No focal deficits. EXTREMITIES: Mild edema - Labs CBC & Chem 7: 07/18/17 06:09 07/18/17 06:09 Labs: Abnormal Lab Results - Last 24 Hours (Table) 07/17/17 07/17/17 07/18/17 Range/Units 16:45 20:49 06:09 MCV (80.0-100.0) fL MCHC (31.0-37.0) g/dL PT 27.4 H (9.0-12.0) sec INR 3.1 H (<1.2) Chloride (98-107) mmol/L Carbon Dioxide (22-30) mmol/L BUN (7-17) mg/dL Creatinine (0.52-1.04) mg/dL Glucose (74-99) mg/dL POC Glucose (mg/dL) 195 H 308 H (75-99) mg/dL 07/18/17 07/18/17 07/18/17 Range/Units 06:09 06:09 06:15 MCV 102.1 H (80.0-100.0) fL MCHC 30.5 L (31.0-37.0) g/dL PT (9.0-12.0) sec INR (<1.2) Chloride 95 L (98-107) mmol/L Carbon Dioxide 35 H (22-30) mmol/L BUN 44 H (7-17) mg/dL Creatinine 1.18 H (0.52-1.04) mg/dL Glucose 256 H (74-99) mg/dL POC Glucose (mg/dL) 244 H (75-99) mg/dL 07/18/17 Range/Units 11:26 MCV (80.0-100.0) fL MCHC (31.0-37.0) g/dL PT (9.0-12.0) sec INR (<1.2) Chloride (98-107) mmol/L Carbon Dioxide (22-30) mmol/L BUN (7-17) mg/dL Creatinine (0.52-1.04) mg/dL Glucose (74-99) mg/dL POC Glucose (mg/dL) 252 H (75-99) mg/dL Assessment and Plan Plan: Assessment and plan #1 acute respiratory failure secondary to diastolic congestive heart failure and exacerbation of COPD #2 chronic persistent atrial fibrillation #3 aortic stenosis #4 COPD #5 hypertension #6 hyperlipidemia Plan From cardiology's perspective, patient may be transferred back to ECF once cleared by primary. We will make her a follow-up appointment in the office post discharge. DNP note has been reviewed, I agree with a documented findings and plan of care. Patient was seen and examined.
--- NOTE | 2017-07-18 15:47 | P.PN ---
Subjective Progress Note Date: 07/18/17 Progress note being dictated for Dr. Becker. Patient was admitted for shortness of breath was treated for CHF exacerbation patient is still short of breath requiring 4 L of falls and although there is fairly good air entry into bilateral lung blankenship patient does have a some expiratory wheezing probably coming from the left labia. Will get an pulmonology opinion regarding this. Patient will continue done inhalational steroids because of her highly elevated blood sugars and the possibility of respiratory status improving with the systemic strides is low because of which I 'm not starting her on any steroids. The regarding patient's blood sugars are started on 20 units of Lantus at nighttime. Patient has worsening kidney function hold of diuretic therapy restart her on oral Lasix starting from tomorrow recheck basic metabolic profile tomorrow. Patient appears to be in mild respiratory distress at rest. Patient is on 4 L of oxygen at this time. 07/17/2017 Patient is quite lethargic today and remains on 4 L of oxygen. Was evaluated by pulmonology patient may have COPD. Started on doxy for bronchitis Constitutional: Denied any fatigue denied any fever. Cardio vascular: denied any chest pain, palpitations Gastrointestinal denied any nausea vomiting Pulmonary: As mentioned in HPI Neurologic denied any new focal deficits 07/18/17 breathing improving, no further wheezing auscultated, rhonchorous. Maintaining O2 sats of 92% on 3 L nasal cannula. Upon attempting to wean oxygen down to 2 L, desatted to 87%(patient does not wear oxygen at [facility] Telemetry controlled atrial fibrillation, INR 3.1. Renal function improving. Objective - Vital Signs Vital signs: Vital Signs Temp 97.6 F 07/18/17 12:00 Pulse 84 07/18/17 13:53 Resp 18 07/18/17 12:00 BP 132/75 07/18/17 12:00 Pulse Ox 92 L 07/18/17 12:00 Intake & Output 07/17/17 07/18/17 07/18/17 18:59 06:59 18:59 Intake Total 1440 360 Output Total 1100 Balance 1440 -1100 360 Weight 87.8 kg 87.9 kg Intake: Oral 1440 360 Output: Urine 1100 Other: Voiding Method Bedside Commode Bedside Commode Bedside Commode Diaper Diaper Diaper Incontinent Incontinent Incontinent # Voids 2 2 1 # Bowel Movements 1 - Exam GENERAL: The patient is alert and oriented x3, is in mild respiratory distress. Well developed, well nourished. HEENT: Pupils are round and equally reacting to light. EOMI. No scleral icterus. No conjunctival pallor. Normocephalic, atraumatic. No pharyngeal erythema. No thyromegaly. CARDIOVASCULAR: S1 and S2 present. Irregular. Positive systolic murmur PULMONARY: Better air entry, no wheezing auscultated, scattered rhonchi bilateral ABDOMEN: Soft, nontender, nondistended, normoactive bowel sounds. No palpable organomegaly. MUSCULOSKELETAL: No joint swelling or deformity. EXTREMITIES: No cyanosis, clubbing, or pedal edema. NEUROLOGICAL: Gross neurological examination did not reveal any focal deficits. SKIN: No rashes. - Labs CBC & Chem 7: 07/18/17 06:09 07/18/17 06:09 Labs: Abnormal Lab Results - Last 24 Hours (Table) 07/17/17 07/17/17 07/18/17 Range/Units 16:45 20:49 06:09 MCV (80.0-100.0) fL MCHC (31.0-37.0) g/dL PT 27.4 H (9.0-12.0) sec INR 3.1 H (<1.2) Chloride (98-107) mmol/L Carbon Dioxide (22-30) mmol/L BUN (7-17) mg/dL Creatinine (0.52-1.04) mg/dL Glucose (74-99) mg/dL POC Glucose (mg/dL) 195 H 308 H (75-99) mg/dL 07/18/17 07/18/17 07/18/17 Range/Units 06:09 06:09 06:15 MCV 102.1 H (80.0-100.0) fL MCHC 30.5 L (31.0-37.0) g/dL PT (9.0-12.0) sec INR (<1.2) Chloride 95 L (98-107) mmol/L Carbon Dioxide 35 H (22-30) mmol/L BUN 44 H (7-17) mg/dL Creatinine 1.18 H (0.52-1.04) mg/dL Glucose 256 H (74-99) mg/dL POC Glucose (mg/dL) 244 H (75-99) mg/dL 07/18/17 Range/Units 11:26 MCV (80.0-100.0) fL MCHC (31.0-37.0) g/dL PT (9.0-12.0) sec INR (<1.2) Chloride (98-107) mmol/L Carbon Dioxide (22-30) mmol/L BUN (7-17) mg/dL Creatinine (0.52-1.04) mg/dL Glucose (74-99) mg/dL POC Glucose (mg/dL) 252 H (75-99) mg/dL Assessment and Plan Assessment: -Acute hypoxic respiratory failure: Secondary to congestive heart failure exacerbation chronic diastolic dysfunction. Patient is on oral Lasix patient can he is to be significantly hypoxic will consult pulmonary for to COPD with acute exacerbation patient will be continued on inhalational steroids patient was started on segment will monitor her today possibly of discharge tomorrow repeat a chest x-ray today with concerns of fluid retention again -Atrial fibrillation presently rate controlled, subtherapeutic INR continue the same dose of Coumadin with repeat INR tomorrow depending on INR tomorrow we'll make additional regarding changing the dose of Coumadin. INR today is 1.6 will continue the same dose of Coumadin today -History of aortic stenosis -Mildly elevated troponin secondary to hypoxemia congestive heart failure -History of COPD may have little bit of exacerbation although do not believe patient will require systemic steroids -Coronary artery disease -Gastroesophageal reflux disease -Hyperlipidemia -Hypertension CODE STATUS is DO NOT RESUSCITATE Plan: Continue on current medication regime ,monitoring and symptomatic treatment. Attempting to wean off oxygen. Steroid tapering in progress. Discharge planning in progress for subacute rehab tomorrow. The impression and plan of care has been dictated as directed. : I performed a history and examination of this patient, discussed the same with the dictator. I agree with the dictator's note ,documented as a scribe. Any additional findings or plans will be noted.
[2017-07-18] MEDS: HYDROcodone/APAP 7.5-325MG 1 EACH TAB PO PRN ×2 (16:07→22:29)
[2017-07-18] MEDS: ALPRAZolam 0.25 MG TAB PO PRN ×2 (16:07→22:29)
[2017-07-18 16:51] LABS: Glucose,Whole Blood 262 mg/dL (75-99)
[2017-07-18 21:01] LABS: Glucose,Whole Blood 390 mg/dL (75-99)
[2017-07-18] MEDS: INSULIN DETEMIR 100 UNIT/ML 10 ML VIAL SQ SCH (21:17)
[2017-07-18] MEDS: MELATONIN 5 MG TABLET PO SCH (21:17)
[2017-07-18] MEDS: ATORVASTATIN 20 MG TAB PO SCH (21:17)
[2017-07-18] MEDS: ASPIRIN 325 MG TAB PO SCH (21:17)
[2017-07-18] MEDS: LATANOPROST 0.005% OPHTH DROPS 2.5 ML BTL BOTH EYES SCH (21:17)
[2017-07-19 01:33] VITALS: RESP 18
[2017-07-19 06:03] LABS: Glucose,Whole Blood 161 mg/dL (75-99)
[2017-07-19] MEDS: INSULIN ASPART 100 UNIT/ML 1 ML 10 ML VIAL SQ SCH ×2 (06:43→12:41)
[2017-07-19] MEDS: FUROSEMIDE 40 MG TAB PO SCH (06:43)
[2017-07-19] MEDS: glipiZIDE 5 MG TAB PO SCH (06:43)
[2017-07-19 06:56] LABS: Calcium 9.1 mg/dL (8.4-10.2); Potassium 4.5 mmol/L (3.5-5.1)
[2017-07-19 06:58] LABS: INR 3.5 (<1.2); Prothrombin Time 31.5 sec (9.0-12.0)
[2017-07-19] MEDS: ESCITALOPRAM 5 MG TAB PO SCH (08:36)
[2017-07-19] MEDS: METOPROLOL TARTRATE 25 MG TAB PO SCH (08:36)
[2017-07-19] MEDS: DILTIAZEM CD 120 MG CAP.ER.24H PO SCH (08:36)
[2017-07-19] MEDS: GABAPENTIN 300 MG CAP PO SCH (08:36)
[2017-07-19] MEDS: DOXYCYCLINE 50 MG CAP PO SCH (08:36)
[2017-07-19] MEDS: IPRATROPIUM-ALBUTEROL 3 ML NEB INHALATION SCH ×2 (08:51→13:22)
[2017-07-19] MEDS: SYMBICORT 160-4.5 MCG INHALER INHALATION SCH (08:51)
[2017-07-19] MEDS ORDERED: ASPIRIN 81 MG PO SCH (11:30)
[2017-07-19] MEDS: ALPRAZolam 0.25 MG TAB PO PRN (11:43)
[2017-07-19] MEDS: BETAMETHASONE DIPROPIONATE 0.05% CREAM 15 GM TUBE TOPICAL SCH (11:43)
[2017-07-19] MEDS: HYDROcodone/APAP 7.5-325MG 1 EACH TAB PO PRN (11:43)
[2017-07-19 12:36] LABS: Glucose,Whole Blood 173 mg/dL (75-99)
[2017-07-19 13:09] VITALS: BP 130/79; TEMP 97.1
[2017-07-19 13:31] VITALS: PULSE 76
--- NOTE | 2017-07-19 13:40 | P.PN ---
Subjective Progress Note Date: 07/19/17 Principal diagnosis: Acute hypoxic respiratory failure secondary to acute exacerbation of diastolic congestive heart failureLilia Heredia is a 87-year-old white female patient of Dr. Neville who presented to the emergency department on 07/15/2017 at 09 37 with complaints of increasing shortness of breath, increasing lower extremity edema, and hypoxia. She denied any fever, chills, chest pain or palpitations. Denied any nausea vomiting or diarrhea. Her past medical history is positive for diastolic heart failure, chronic atrial fibrillation, coronary artery disease, diabetes mellitus type 2, COPD, hyperlipidemia, hypertension, and severe aortic stenosis. Chest x-ray from 07/15/2017 showed cardiomegaly, vascular congestion, pulmonary edema and bilateral small pleural effusions. EKG showed atrial fibrillation with PVCs and left anterior fascicular block, with a rate of 91 BPM. Patient is on warfarin for long-term anticoagulation, she is on Cardizem CD for rate control. She was diuresed with IV Lasix, which was switched to oral Lasix. She was given IV Solu-Medrol, she was started on doxycycline, nebulized treatments and Symbicort for evidence of wheezing and rhonchi consistent with COPD exacerbation. Progress note dated 07/18/2017 This is an 87-year-old female who presented with significant hypoxemic respiratory failure secondary to diastolic CHF. She had an ejection fraction of 50-55% on 2-D echo. She also suffers from severe aortic stenosis with significant gradient across the aortic valve chronic and persistent atrial fibrillation COPD chronic nicotine dependence acute on chronic kidney disease hyperlipidemia CAD diabetes osteoarthritis glaucoma hiatal hernia and GERD and anxiety. Yesterday she looked pretty short of breath but today she looks much better. Feeling much better. She is a no code patient. She is a loud murmur of aortic stenosis. Chest x-ray showed evidence of heart failure. Clinically she is improved. Her N-terminal proBNP also, was quite elevated. The patient is seen again today 07/19/2017 in follow-up on the selective care unit. She is awake and alert in no acute distress. She states her breathing is nearly back to her baseline. She has been afebrile. Maintaining good O2 saturations in the mid 90s on 2 L/m per nasal cannula. No tachycardia. No tachypnea. She is maintained on DuoNeb inhalations, Symbicort, prednisone. Oral diuretics. She is on empiric antibiotics in the form of doxycycline. Objective - Vital Signs Vital signs: Vital Signs Temp 97.1 F L 07/19/17 12:00 Pulse 76 07/19/17 13:29 Resp 18 07/19/17 12:00 BP 130/79 07/19/17 12:00 Pulse Ox 95 07/19/17 12:00 Intake & Output 07/18/17 07/19/17 07/19/17 18:59 06:59 18:59 Intake Total 540 480 Output Total 200 Balance 540 280 Weight 88.3 kg Intake: Oral 540 480 Output: Urine 200 Other: Voiding Method Bedside Commode Bedside Commode Bedside Commode Diaper Diaper Diaper Incontinent Incontinent Incontinent # Voids 1 1 0 # Bowel Movements 1 0 - Exam GENERAL EXAM: Alert, pleasant, 87-year-old obese elderly white female, comfortable in no apparent distress. HEAD: Normocephalic/atraumatic. EYES: Normal reaction of pupils, equal size. Conjunctiva pink, sclera white. NOSE: Clear with pink turbinates. THROAT: No erythema or exudates. NECK: No masses, no JVD, no thyroid enlargement, no adenopathy. CHEST: No chest wall deformity. Symmetrical expansion. LUNGS: Equal air entry with scattered wheezes, and rhonchi throughout the lung blankenship CVS: Irregular rate and rhythm, normal S1 and S2, no gallops, there is a systolic murmur auscultated throughout the precordium, loudest at the right sternal border, no rubs ABDOMEN: Soft, nontender. No hepatosplenomegaly, normal bowel sounds, no guarding or rigidity. EXTREMITIES: No clubbing, no cyanosis, 2+ pulses and upper and lower extremities. There is 2+ bilateral lower extremity edema, and cellulitis present MUSCULOSKELETAL: Muscle strength and tone normal. SPINE: No scoliosis or deformity SKIN: No rashes CENTRAL NERVOUS SYSTEM: Alert and oriented -3. No focal deficits, tone is normal in all 4 extremities. PSYCHIATRIC: Alert and oriented -3. Appropriate affect. Intact judgment and insight. - Labs CBC & Chem 7: 07/18/17 06:09 07/19/17 05:52 Labs: Abnormal Lab Results - Last 24 Hours (Table) 07/18/17 07/18/17 07/19/17 Range/Units 16:50 20:59 05:52 PT 31.5 H (9.0-12.0) sec INR 3.5 H (<1.2) Sodium (137-145) mmol/L Chloride (98-107) mmol/L Carbon Dioxide (22-30) mmol/L BUN (7-17) mg/dL Creatinine (0.52-1.04) mg/dL Glucose (74-99) mg/dL POC Glucose (mg/dL) 262 H 390 H (75-99) mg/dL 07/19/17 07/19/17 07/19/17 Range/Units 05:52 06:01 12:33 PT (9.0-12.0) sec INR (<1.2) Sodium 136 L (137-145) mmol/L Chloride 96 L (98-107) mmol/L Carbon Dioxide 33 H (22-30) mmol/L BUN 45 H (7-17) mg/dL Creatinine 1.13 H (0.52-1.04) mg/dL Glucose 163 H (74-99) mg/dL POC Glucose (mg/dL) 161 H 173 H (75-99) mg/dL Assessment and Plan Assessment: Assessment: #1. Acute hypoxic respiratory failure secondary to acute diastolic congestive heart failure. EF on the 2-D echo from 10/11/2016 is 50-55% #2. Severe aortic stenosis as evidenced from that 2-D echo from 10/11/2016 with peak mean gradient across the aortic valve is 68.29 mmHg and severe concentric LVH #3. Chronic persistent atrial fibrillation, on warfarin for long-term anticoagulation. On digoxin and Cardizem CD for rate control #4. History of COPD with a mild exacerbation #5. History of nicotine dependence, in remission, quit in 1981, carries a 21- pack-year smoking history #6. Acute on chronic kidney disease, CKD stage III #7. Hyperlipidemia, hypertension #8. Coronary artery disease #9. Diabetes mellitus #10. Osteoarthritis #11. Glaucoma #12. Hiatal hernia, GERD #13. Anxiety Plan: The patient was seen and evaluated by Dr. Madrid. She is improving daily. We' ll continue with her current medications including antibiotics in the form of doxycycline, Symbicort, DuoNeb inhalations, oral prednisone. Will increase her activity as tolerated. She is cleared for discharge from the pulmonary standpoint. Cardiology is following as well. I, the cosigning physician, performed a history & physical examination of the patient. Lungs sounds have few crackles in the bilateral posterior bases. Maintaining good O2 saturations in the 90s on 2 L/m per nasal cannula. I discussed the assessment and plan of care with my nurse practitioner, Iris Gómez. I attest to the above note as dictated by her.
--- NOTE | 2017-07-19 14:47 | P.DS ---
Providers Date of admission: 07/15/17 11:43 Expected date of discharge: 07/19/17 Attending physician: Patricia Becker Consults: 07/15/17 11:43 Consult Physician Routine Consulting Provider: [facility] Consult Reason/Comments: Pulmonary edema Do you want consulting provider notified?: Yes 07/16/17 14:01 Consult Physician Routine Consulting Provider: Krystal Dillon Consult Reason/Comments: Possible COPD Do you want consulting provider notified?: Yes Primary care physician: Migdalia Neville Hospital Course: Final Diagnoses: -Acute hypoxic respiratory failure, O2 dependent, weaned down to 2 L nasal cannula: Secondary to congestive heart failure exacerbation chronic diastolic dysfunction, acute on chronic COPD exacerbation. -Atrial fibrillation presently rate controlled, Coumadin currently on hold secondary to elevated INR 3.5 -History of aortic stenosis -Mildly elevated troponin secondary to hypoxemia congestive heart failure -Coronary artery disease -Gastroesophageal reflux disease -Hyperlipidemia -Hypertension -Acute renal failure, diuretic induced CODE STATUS is DO NOT RESUSCITATE Hospital course:Patient was admitted for shortness of breath was treated for CHF exacerbation, acute on chronic COPD exacerbation and multiple other medical issues. Evaluated by pulmonary and cardiology. Initially diuresed with Lasix, renal function worsened, Lasix held temporarily. Now resumed at lower dose than home dose. Maintained on nebulized bronchodilators, antibiotics, steroids. Remains oxygen dependent with O2 weaned down to 2 L nasal cannula. Significant clinical improvement. Patient has been cleared by pulmonary and cardiology for discharge. Patient is being discharged [facility] in a stable condition with guarded prognosis. Physical exam:GENERAL: The patient is alert and oriented x3, is in mild respiratory distress.CARDIOVASCULAR: S1 and S2 present. Irregular. Positive systolic murmur. PULMONARY: Better air entry, no wheezing auscultated, scattered rhonchi bilateral.ABDOMEN: Soft, nontender, nondistended, normoactive bowel sounds. EXTREMITIES: Decreasing edema.NEUROLOGICAL: Gross neurological examination did not reveal any focal deficits. The impression and plan of care has been dictated as directed. : I performed a history and examination of this patient, discussed the same with the dictator. I agree with the dictator's note ,documented as a scribe. Any additional findings or plans will be noted. Time taken: Greater than 35 minutes Patient Condition at Discharge: Stable Plan - Discharge Summary New Discharge Prescriptions: New Aspirin 81 mg PO DAILY #0 chew Doxycycline [Vibramycin] 100 mg PO BID #10 cap Furosemide [Lasix] 40 mg PO DAILY@0700 tab Insulin Detemir [Levemir] 20 unit SQ HS syr INSULIN LISPRO (HumaLOG) [humaLOG] 0 unit SQ ACHS #1 vial predniSONE 20 mg PO DAILY #5 tab Continue glipiZIDE [Glucotrol] 5 mg PO AC-BID Melatonin 5 mg PO HS Betamethasone Dipropionate [Diprolene AF 0.05% Cream] 1 applic TOPICAL BID Metoprolol Tartrate [Lopressor] 25 mg PO BID tab Natural Tears 2 drops BOTH EYES Q6H PRN PRN Reason: Dry Eye(S) [place] Suspension 30 ml PO Q4H PRN PRN Reason: Indigestion Ipratropium-Albuterol Nebulize [Duoneb 0.5 mg-3 mg/3 ml Soln] 3 ml INHALATION RT-TID Acetaminophen [Tylenol] 650 mg PO Q4H PRN PRN Reason: Pain Simvastatin [Zocor] 40 mg PO HS Latanoprost Ophth [Xalatan 0.005%] 1 drops BOTH EYES HS Gabapentin [Neurontin] 300 mg PO DAILY Escitalopram [Lexapro] 5 mg PO DAILY Fluticasone/Vilanterol [Breo Ellipta 200-25 Mcg INH] 1 puff INHALATION RT- DAILY Diltiazem HCl [Diltiazem 24Hr ER] 120 mg PO DAILY ALPRAZolam [Xanax] 0.25 mg PO Q6H PRN #20 tablet PRN Reason: Anxiety Hydrocodone/Acetaminophen [Copan 7.5-325] 1 tab PO Q6H PRN #20 tablet PRN Reason: Pain Discontinued Potassium Chloride ER [K-Dur 20] 20 meq PO DAILY Warfarin [Coumadin] 6 mg PO SUTUWETHSA Furosemide [Lasix] 60 mg PO DAILY@0700 Warfarin [Coumadin] 3 mg PO MOFR Aspirin 325 mg PO HS Discharge Medication List glipiZIDE [Glucotrol] 5 mg PO AC-BID 04/26/14 [History] Betamethasone Dipropionate [Diprolene AF 0.05% Cream] 1 applic TOPICAL BID 10/10 [History] Melatonin 5 mg PO HS 10/10/16 [History] Metoprolol Tartrate [Lopressor] 25 mg PO BID tab 10/15/16 [Rx] Acetaminophen [Tylenol] 650 mg PO Q4H PRN 07/15/17 [History] Diltiazem HCl [Diltiazem 24Hr ER] 120 mg PO DAILY 07/15/17 [History] Escitalopram [Lexapro] 5 mg PO DAILY 07/15/17 [History] Fluticasone/Vilanterol [Breo Ellipta 200-25 Mcg INH] 1 puff INHALATION RT-DAILY 07/15/17 [History] Gabapentin [Neurontin] 300 mg PO DAILY 07/15/17 [History] Ipratropium-Albuterol Nebulize [Duoneb 0.5 mg-3 mg/3 ml Soln] 3 ml INHALATION RT -TID 07/15/17 [History] Latanoprost Ophth [Xalatan 0.005%] 1 drops BOTH EYES HS 07/15/17 [History] [place] Suspension 30 ml PO Q4H PRN 07/15/17 [History] Natural Tears 2 drops BOTH EYES Q6H PRN 07/15/17 [History] Simvastatin [Zocor] 40 mg PO HS 07/15/17 [History] ALPRAZolam [Xanax] 0.25 mg PO Q6H PRN #20 tablet 07/19/17 [Rx] Aspirin 81 mg PO DAILY #0 chew 07/19/17 [Rx] Doxycycline [Vibramycin] 100 mg PO BID #10 cap 07/19/17 [Rx] Furosemide [Lasix] 40 mg PO DAILY@0700 tab 07/19/17 [Rx] Hydrocodone/Acetaminophen [Copan 7.5-325] 1 tab PO Q6H PRN #20 tablet 07/19/17 [ Rx] INSULIN LISPRO (HumaLOG) [humaLOG] 0 unit SQ ACHS #1 vial 07/19/17 [Rx] Insulin Detemir [Levemir] 20 unit SQ HS syr 07/19/17 [Rx] predniSONE 20 mg PO DAILY #5 tab 07/19/17 [Rx] Follow up Appointment(s)/Referral(s): Rylan Madrid DO [Doctor of Osteopathic Medicine] - 2 Weeks Migdalia Neville MD [Primary Care Provider] - 3 Days Activity/Diet/Wound Care/Special Instructions: Hold coumadin, recheck PT/INR in AM Confirm Cardiology F/U appointment prior to discharge. 2lnc O2 Diet: Counadin DIet Activity: as tolerated PT/INR daily cbc,bmp in 3 days Discharge Disposition: TRANSFER TO SNF/ECF
--- NOTE | 2017-07-19 15:24 | P.PN ---
Subjective Progress Note Date: 07/19/17 This 87-year-old female with history of chronic atrial fibrillation, severe aortic stenosis, diastolic congestive heart failure, hypertension, diabetes, COPD, and hyperlipidemia who is admitted to the hospital with increasing shortness of breath and also pedal edema. Patient denied any chest pain. Patient is also known to have mild coronary artery disease. Her chest x-ray showed evidence of for exacerbation of CHF. Patient was treated with IV Lasix. Patient was seen and examined today, much more wheezy than yesterday. She is eager to [facility] back to the [facility] however we will continue monitoring her for another 24 hours. A pulmonary consultation has also been requested 07/18/2017 Patient seen and examined this morning, feeling much better overall today, sitting up at bedside. Currently on by mouth Lasix. Blood pressure 132/70 with a heart rate in the 80s, 92% on 3 L of oxygen. INR 3.1. 07/19/2017 seen and examined this morning, eager to be transferred back to the extended care facility. Breathing is stable, hemodynamically stable. INR today is 3.5. BUN 45, creatinine 1.1. Objective - Vital Signs Vital signs: Vital Signs Temp 97.1 F L 07/19/17 12:00 Pulse 76 07/19/17 13:29 Resp 18 07/19/17 12:00 BP 130/79 07/19/17 12:00 Pulse Ox 95 07/19/17 12:00 Intake & Output 07/18/17 07/19/17 07/19/17 18:59 06:59 18:59 Intake Total 540 480 Output Total 200 Balance 540 280 Weight 88.3 kg Intake: Oral 540 480 Output: Urine 200 Other: Voiding Method Bedside Commode Bedside Commode Bedside Commode Diaper Diaper Diaper Incontinent Incontinent Incontinent # Voids 1 1 0 # Bowel Movements 1 0 - Exam GENERAL EXAM: Patient is alert and oriented and doesn't appear to be in any acute distress HEENT: Normocephalic. Normal reaction of pupils, equal size, normal range of extraocular motion. NECK: No masses, no nuchal rigidity. CHEST: No chest wall deformity. LUNGS: Scattered coarse wheezing throughout. HEART: S1 and S2 normal. Systolic murmur heard all over the precordium ABDOMEN: No hepatosplenomegaly, normal bowel sounds, no guarding or rigidity. SKIN: No rashes CENTRAL NERVOUS SYSTEM: No focal deficits. EXTREMITIES: Mild edema - Labs CBC & Chem 7: 07/18/17 06:09 07/19/17 05:52 Labs: Abnormal Lab Results - Last 24 Hours (Table) 07/18/17 07/18/17 07/19/17 Range/Units 16:50 20:59 05:52 PT 31.5 H (9.0-12.0) sec INR 3.5 H (<1.2) Sodium (137-145) mmol/L Chloride (98-107) mmol/L Carbon Dioxide (22-30) mmol/L BUN (7-17) mg/dL Creatinine (0.52-1.04) mg/dL Glucose (74-99) mg/dL POC Glucose (mg/dL) 262 H 390 H (75-99) mg/dL 07/19/17 07/19/17 07/19/17 Range/Units 05:52 06:01 12:33 PT (9.0-12.0) sec INR (<1.2) Sodium 136 L (137-145) mmol/L Chloride 96 L (98-107) mmol/L Carbon Dioxide 33 H (22-30) mmol/L BUN 45 H (7-17) mg/dL Creatinine 1.13 H (0.52-1.04) mg/dL Glucose 163 H (74-99) mg/dL POC Glucose (mg/dL) 161 H 173 H (75-99) mg/dL Assessment and Plan Plan: Assessment and plan #1 acute respiratory failure secondary to diastolic congestive heart failure and exacerbation of COPD #2 chronic persistent atrial fibrillation #3 aortic stenosis #4 COPD #5 hypertension #6 hyperlipidemia Plan From cardiology's perspective, patient may be transferred back to [facility] once cleared by primary. We will make her a follow-up appointment in the office post discharge. DNP note has been reviewed, I agree with a documented findings and plan of care. Patient was seen and examined.
== END 2017-07-19 16:34 | DRG 291 ==
LOC: EC 09:37 → 6SEL 11:43
PROVIDERS: ADMIT Internal Medicine; ATTEND Internal Medicine
DX: I13.0 Hypertensive heart and chronic kidney disease with heart failure and stage 1 through stage 4 chronic kidney disease, or unspecified chronic kidney disease (principal); I50.33 Acute on chronic diastolic (congestive) heart failure; J96.01 Acute respiratory failure with hypoxia; N17.9 Acute kidney failure, unspecified; I48.1 Persistent atrial fibrillation; E11.22 Type 2 diabetes mellitus with diabetic chronic kidney disease; E11.65 Type 2 diabetes mellitus with hyperglycemia; I48.92 Unspecified atrial flutter; J44.1 Chronic obstructive pulmonary disease with (acute) exacerbation; E78.5 Hyperlipidemia, unspecified; F17.200 Nicotine dependence, unspecified, uncomplicated; F41.9 Anxiety disorder, unspecified; H40.9 Unspecified glaucoma; I25.10 Atherosclerotic heart disease of native coronary artery without angina pectoris; I35.0 Nonrheumatic aortic (valve) stenosis; I48.2 Chronic atrial fibrillation; I49.3 Ventricular premature depolarization; K21.9 Gastro-esophageal reflux disease without esophagitis; K44.9 Diaphragmatic hernia without obstruction or gangrene; M19.90 Unspecified osteoarthritis, unspecified site; N18.3 Chronic kidney disease, stage 3 (moderate); R79.1 Abnormal coagulation profile; T50.2X5A Adverse effect of carbonic-anhydrase inhibitors, benzothiadiazides and other diuretics, initial encounter; Z66 Do not resuscitate; Z79.01 Long term (current) use of anticoagulants; Z79.52 Long term (current) use of systemic steroids; Z79.82 Long term (current) use of aspirin; Z79.84 Long term (current) use of oral hypoglycemic drugs; Z90.710 Acquired absence of both cervix and uterus; Z99.81 Dependence on supplemental oxygen; Z79.899 Other long term (current) drug therapy; Z88.2 Allergy status to sulfonamides; Z88.0 Allergy status to penicillin
CPT/HCPCS: 36415; 71045; 71046; 80048; 80053; 81001; 82550; 82553; 83036; 83735; 83880; 84484; 85025; 85027; 85610; 85730; 87081; 87430; 93005; 94640; 94644; 94760; 96374; 96375; 99291